=== PATIENT | female | born 1950 | race Caucasian/White ===

== ENCOUNTER 2019-08-15 17:04 | Emergency (ER) | payer MEDICARE, SELFPAY ==
[2019-08-15 17:42] VITALS: BP 103/61; PULSE 86; RESP 18; TEMP 36.7; O2SAT 95
--- NOTE | 2019-08-15 18:07 | ED.URI ---
HPI - URI/Sore Throat General Chief Complaint: Upper Respiratory Infection Stated Complaint: Chest Congestion/cough Time Seen by Provider: 08/15/19 17:50 Source: patient Mode of arrival: ambulatory Limitations: no limitations History of Present Illness HPI Narrative: Mare alexis is a 69-year-old female who comes to express care with cough and shortness of breath. She is known to have COPD, seen apparent primary recently and gotten a Medrol Dosepak from the primary. A chest x-ray today and [facility] which was read as no acute pulmonary process Related Data Home Medications Medication Instructions Recorded Confirmed albuterol sulfate 90 mcg/actuation 1 puff INHALATION Q4H PRN 04/25/19 05/20/19 aerosol inhaler cholecalciferol (vitamin D3) 50 2,000 unit PO DAILY 04/25/19 05/20/19 mcg (2,000 unit) tablet desoximetasone 0.05 % topical cream 1 applic TOPICAL BID 04/25/19 05/20/19 fluticasone propionate 50 2 spray NASAL DAILY 04/25/19 05/20/19 mcg/actuation nasal spray,suspension hydrocodone 10 mg-acetaminophen 1 tablet PO TID PRN tablet 04/25/19 05/20/19 325 mg tablet ibuprofen 800 mg tablet 800 mg PO TID 04/25/19 05/20/19 loratadine 10 mg tablet 10 mg PO DAILY 04/25/19 05/20/19 mupirocin 2 % topical ointment 1 applic TOPICAL BID 04/25/19 05/20/19 pantoprazole 40 mg tablet,delayed 40 mg PO QAM 04/25/19 05/20/19 release sennosides 8.6 mg tablet 8.6 mg PO BID 04/25/19 05/20/19 simvastatin 20 mg tablet 20 mg PO DAILY 04/25/19 05/20/19 sitagliptin 50 mg tablet 50 mg PO DAILY 04/25/19 05/20/19 ibuprofen 08/15/19 Allergies Allergy/AdvReac Type Severity Reaction Status Date / Time latex Allergy Intermediate CONTACT Verified 08/15/19 17:47 ONLY, RASH ceftriaxone Allergy Unknown Rash Verified 08/15/19 17:47 levofloxacin Allergy Unknown Rash Verified 08/15/19 17:47 morphine Allergy Unknown Rash Verified 08/15/19 17:47 Bgbzlsn-Bph-Equ Reductase Allergy Unknown Back Pain Verified 08/15/19 17:47 Inhibitor prednisone AdvReac Irritable Verified 08/15/19 18:50 Review of Systems Review of Systems: Narrative: CONSTITUTIONAL: Denies fever, chills, sweats. EYES: Denies visual changes, redness, discharge. ENT: Denies rhinorrhea, congestion, sore throat, otalgia. CARDIOVASCULAR: Denies chest pain, palpitations, edema. RESPIRATORY: Denies dyspnea, moderate wheezing, dry cough GASTROINTESTINAL: Denies abdominal pain, nausea, vomiting, diarrhea. GENITOURINARY: Denies dysuria, hematuria, abnormal discharge SKIN: Denies rash or itching. NEUROLOGIC: Denies numbness, or focal weakness. PSYCHIATRIC: Denies anxiety or depression. [facility] Family History Family History Sibling Family history of bipolar disorder Family history of chronic obstructive pulmonary disease Father Hypertension Family history of chronic obstructive pulmonary disease Malignant neoplasm of prostate Patient's father is Mother Hypertension Family history of transient ischemic attacks Family history of elevated blood lipids Family history of diabetes mellitus in first degree relative Family history of coronary artery disease Patient's mother is Family history of malignant neoplasm of breast in first degree relative Diabetes mellitus Other Asthma Cerebrovascular accident Family history of arthritis Social History Social History Smoking status: Never smoker Alcohol intake: current Comments At time of signature, I agree with nursing past medical, surgical, social and family history. There is no relevant family history pertinent to the presenting complaint. Exam Narrative: Exam Narrative: GENERAL: This is a well-nourished, well-developed patient, in mild distress. HEAD: normocephalic, atraumatic. EYES: Sclera clear/white. Vision is grossly intact. EARS: External ears normal, . Hea
--- NOTE | 2019-08-15 18:57 | ED.URI ---
HPI - URI/Sore Throat General Chief Complaint: Upper Respiratory Infection Stated Complaint: Chest Congestion/cough Time Seen by Provider: 08/15/19 17:50 Source: patient Mode of arrival: ambulatory Limitations: no limitations Related Data Home Medications Medication Instructions Recorded Confirmed albuterol sulfate 90 mcg/actuation 1 puff INHALATION Q4H PRN 04/25/19 05/20/19 aerosol inhaler cholecalciferol (vitamin D3) 50 2,000 unit PO DAILY 04/25/19 05/20/19 mcg (2,000 unit) tablet desoximetasone 0.05 % topical cream 1 applic TOPICAL BID 04/25/19 05/20/19 fluticasone propionate 50 2 spray NASAL DAILY 04/25/19 05/20/19 mcg/actuation nasal spray,suspension hydrocodone 10 mg-acetaminophen 1 tablet PO TID PRN tablet 04/25/19 05/20/19 325 mg tablet ibuprofen 800 mg tablet 800 mg PO TID 04/25/19 05/20/19 loratadine 10 mg tablet 10 mg PO DAILY 04/25/19 05/20/19 mupirocin 2 % topical ointment 1 applic TOPICAL BID 04/25/19 05/20/19 pantoprazole 40 mg tablet,delayed 40 mg PO QAM 04/25/19 05/20/19 release sennosides 8.6 mg tablet 8.6 mg PO BID 04/25/19 05/20/19 simvastatin 20 mg tablet 20 mg PO DAILY 04/25/19 05/20/19 sitagliptin 50 mg tablet 50 mg PO DAILY 04/25/19 05/20/19 ibuprofen 08/15/19 Allergies Allergy/AdvReac Type Severity Reaction Status Date / Time latex Allergy Intermediate CONTACT Verified 08/15/19 17:47 ONLY, RASH ceftriaxone Allergy Unknown Rash Verified 08/15/19 17:47 levofloxacin Allergy Unknown Rash Verified 08/15/19 17:47 morphine Allergy Unknown Rash Verified 08/15/19 17:47 Jiwjfzj-Ymz-Ibh Reductase Allergy Unknown Back Pain Verified 08/15/19 17:47 Inhibitor prednisone AdvReac Irritable Verified 08/15/19 18:50 PMFSH Family History Family History Sibling Family history of bipolar disorder Family history of chronic obstructive pulmonary disease Father Hypertension Family history of chronic obstructive pulmonary disease Malignant neoplasm of prostate Patient's father is Mother Hypertension Family history of transient ischemic attacks Family history of elevated blood lipids Family history of diabetes mellitus in first degree relative Family history of coronary artery disease Patient's mother is Family history of malignant neoplasm of breast in first degree relative Diabetes mellitus Other Asthma Cerebrovascular accident Family history of arthritis Social History Social History Smoking status: Never smoker Alcohol intake: current Course Vital Signs Vital signs: Vital Signs Temperature 98.0 F 08/15/19 17:42 Pulse Rate 86 08/15/19 17:42 Respiratory Rate 18 08/15/19 17:42 Blood Pressure 103/61 08/15/19 17:42 Pulse Oximetry 95 08/15/19 17:42 Temperature 98.0 F 08/15/19 17:42 Pulse Rate 86 08/15/19 17:42 Respiratory Rate 18 08/15/19 17:42 Blood Pressure 103/61 08/15/19 17:42 Pulse Oximetry 95 08/15/19 17:42 Discharge Plan Discharge Clinical Impression: Upper respiratory infection Qualifiers: URI type: unspecified viral URI Qualified Code(s): J06.9 - Acute upper respiratory infection, unspecified Patient Disposition: Home, Self-Care Condition: Stable Instructions: COPD (Chronic Obstructive Pulmonary Disease) (DC) Prescriptions: New Coricidin HBP Chest Rony-Cough 10-200 mg capsule 1 tab-cap PO ONCE PRN (Reason: cough) Qty: 30 RF: 0 codeine-guaifenesin 10-100 mg/5 mL liquid 10 ml PO Q4-6H PRN (Reason: cough) Qty: 180 RF: 0 No Action ibuprofen 800 mg tablet RF: 0 desoximetasone 0.05 % cream 1 applic TOPICAL BID RF: 0 fluticasone propionate 50 mcg/actuation spray,suspension 2 spray NASAL DAILY RF: 0 hydrocodone-acetaminophen 10-325 mg tablet 1 tablet PO TID PRNRF: 0 ibuprofen 800 mg tablet 800 mg PO TID RF: 0 Januvia 5
== END 2019-08-15 18:59 | disposition home or self-care (01) ==
PROVIDERS: Emergency Provider Nurse Practitioner
DX: J06.9 Acute upper respiratory infection, unspecified (principal); E78.00 Pure hypercholesterolemia, unspecified; I10 Essential (primary) hypertension; J44.9 Chronic obstructive pulmonary disease, unspecified; E11.9 Type 2 diabetes mellitus without complications
CPT/HCPCS: 99213; G0463

== ENCOUNTER 2020-12-04 08:31 | Outpatient (CLI) | payer MEDICARE, SELFPAY ==
--- NOTE | ~2020-12-04 | CT_ITS ---
EXAMINATION: CT lung screening DATE: 12/04/2020 09:09 INDICATION: Personal history of nicotine dependence TECHNIQUE: Computed tomography (CT) of the chest was performed without intravenous contrast. The dose -length product was 136.55 mGy-cm. Automated exposure control and iterative reconstruction technique were employed. COMPARISON: CT dated 08/04/2015 FINDINGS: Heart size is normal. No significant pleural or pericardial effusion. No thoracic lymphaden opathy. There is coronary and aortic atherosclerotic change. Left adrenal mass is low density measuri ng 2.5 cm, likely benign adenoma. No endobronchial lesions. There are a few small 2 mm nodules scatte red throughout both lungs. No pneumothorax. Mild thoracic spondylosis. IMPRESSION: 1. Lung-RADS category 2: Benign appearance or behavior. Continue annual screening with noncontrast lo w-dose chest CT in 12 months. Reviewed, dictated and finalized at location A. IMPRESSION: 1. Lung-RADS category 2: Benign appearance or behavior. Continue annual screeni ng with noncontrast low-dose chest CT in 12 months.
[2020-12-04 09:06] LABS: Basophils Percent Auto 0.6 % (0.2-1.2); Eosinophils Absolute Auto 0.2 K/mm3 (0-0.3); Eosinophils Percent Auto 4.3 % (0-4.4); Hematocrit 42.8 % (37.0-47.0); Hemoglobin 14.4 g/dL (12.0-15.0); Immature Granulocyte Absolute 0.01 K/mm3 (0.00-0.031); Immature Granulocyte Percent A 0.2 % (0-0.5); Lymphocytes Absolute Auto 1.27 K/mm3 (0.9-3.2); Mean Corpuscular HGB Conc 33.6 g/dl (32-36); Mean Corpuscular Hemoglobin 31.6 pg (26-34); Mean Corpuscular Volume 94.1 fl (80-100); Mean Platelet Volume 8.8 fl (7.4-10.4); Monocytes Absolute Auto 0.5 K/mm3 (0.1-0.6); Monocytes Percent Auto 9.1 % (2.6-8.5); Neutrophils Absolute Auto 3.1 K/mm3 (1.3-6.7); Neutrophils Percent Auto 60.8 % (45.5-73.1); Platelet Count Result 306 k/mm3 (150-375); Red Blood Count 4.55 M/mm3 (4.2-5.4); Red Cell Distribution Width 12.9 % (11.5-14.5); White Blood Count 5.1 K/mm3 (4.5-10.0)
[2020-12-04 09:10] LABS: Alanine Aminotransferase 20 U/L (4-35); Alkaline Phosphatase 63 U/L (38-126); Anion Gap 6 mmol/L (8-16); Aspartate Amino Transferase 30 U/L (14-36); Bilirubin,Total 0.3 mg/dL (0.2-1.3); Blood Urea Nitrogen 19 mg/dL (7-17); Calcium 9.1 mg/dL (8.4-10.2); Carbon Dioxide 24 mmol/L (22-30); Chloride 111 mmol/L (98-107); Cholesterol 213 mg/dL (0-200); Estimated Glomerular Filt Rate > 60; Glucose 102 mg/dL (65-105); HDL Direct 46 mg/dL; Potassium 4.1 mmol/L (3.4-5.0); Sodium 141 mmol/L (137-145); Triglycerides 202 mg/dL (<150)
[2020-12-04 09:21] LABS: LDL Cholesterol Direct 114 mg/dL
[2020-12-04 09:25] LABS: Hemoglobin A1C 6.1 % (<5.7)
[2020-12-04 10:06] LABS: Creatinine Urine 56.8 mg/dL
[2020-12-04 10:09] LABS: MALB Creatinine Ratio 48.9 mg/g (0-30); Microalbumin Urine Random 27.8 mg/L (0-16.7)
== END 2020-12-04 08:32 | disposition home or self-care (01) ==
PROVIDERS: PCP Internal Medicine; Visit Provider Internal Medicine
DX: R53.83 Other fatigue (principal); Z87.891 Personal history of nicotine dependence; E11.9 Type 2 diabetes mellitus without complications; I10 Essential (primary) hypertension; E78.5 Hyperlipidemia, unspecified
CPT/HCPCS: 36415; 71271; 80053; 80061; 82043; 83036; 84443; 85025

== ENCOUNTER 2021-05-25 07:35 | Outpatient (CLI) | payer MEDICARE, SELFPAY ==
--- NOTE | 2021-06-15 08:13 | WPDSLEEPSTUD ---
Sleep Study Date of Study: 05/25/21 <Ankita Bhakta DO - Last Filed: 06/15/21 17:21> Ordering Provider: Sabino Ledesma DO <Ankita Bhakta, DO - Last Filed: 06/15/21 17:21> Interpreting Physician: Ankita Bhakta DO <Ankita Bhakta, DO - Last Filed: 06/15/21 17:21> Sleep Study Type: Split Polysomnogram <Ankita Bhakta DO - Last Filed: 06/15/21 17:21> Height: 1.7 m <Ankita Bhakta DO - Last Filed: 06/15/21 17:21> Weight: 97.522 kg <Ankita Bhakta DO - Last Filed: 06/15/21 17:21> Body Mass Index: 33.6 <Ankita Bhakta DO - Last Filed: 06/15/21 17:21> Neck Circumference (inches): 17.5 <Ankita Bhakta DO - Last Filed: 06/15/21 17:21> [place]: 5 <Ankita Bhakta DO - Last Filed: 06/15/21 17:21> Reason for Sleep Study Unrefreshing sleep, daytime hypersomnia <Ankita Bhakta DO - Last Filed: 06/15/21 17:21> Sleep History The patient is a 70-year-old female with hypertension, diabetes, COPD, cervical spinal stenosis, depression, ADD and GERD that had a sleep study ordered by her primary care due to unrefreshing sleep and daytime hypersomnia. the patient denies awaking from sleep short of breath. She rarely awakens at night with heartburn, belching or cough. She frequently snores. She frequently has trouble sleeping when she has a cold [place] she rarely wakes up gasping for air throughout the night GERD she rarely has breathing problems at night observed by others. She occasionally notices heart palpitations or irregular heartbeats during the night. She frequently falls asleep during the day but never while driving. She denies sleep paralysis, cataplexy and hypnagogic / hypnopompic hallucinations. She denies having nightmares. She frequently has thoughts racing through her mind. She occasionally feels sad or depressed. She occasionally has anxiety. She occasionally notices parts of her body jerk. She rarely kicks during the night. She rarely has crawling and aching feelings in her legs. She occasionally has leg pain during the night. She occasionally grinds her teeth during sleep but never awakens with morning jaw pain. She is frequently bothered by pain during the day and frequently awakened by pain during the night. She occasionally wakes up feeling stiff in the morning with sore and achy muscles. She constantly wakes up with pain in the neck, spine and other joints. The patient goes to bed at 8:00 p.m. on weekdays and 9:00 p.m. on the weekends. She can fall asleep quickly. She wakes up 3 times per night to use the restroom. She can fall asleep within 5 minutes. She wakes up at 6:00 a.m. on weekdays and 7:00 a.m. on the weekends. She typically gets 8 hours of sleep per night. She will stay in bed for 5 minutes after waking up in the morning. She currently lives alone. She does not consume any caffeinated beverages within 2 hours of bedtime. She does not engage in physical exercise before bedtime. She will watch television before falling asleep. She will take naps in the afternoon or the evening but they are not refreshing. She currently drinks 6 caffeinated beverages per day is. She drinks 2 alcoholic beverages per month. She currently smokes 1 pack of cigarettes per day. She denies recreational drug use. <Ankita Bhakta DO - Last Filed: 06/15/21 17:21> [facility] Past Medical History Medical History: Medical History (Updated 06/15/21 @ 17:17 by Ankita Bhakta DO) ADD (attention deficit disorder) Chronic obstructive pulmonary disease, unspecified Controlled type 2 diabetes mellitus without complication Essential (primary) hypertension Gastroesophageal reflux disease without esophagitis Major depressive disorder, single episode, unspecified Mixed hyperlipidemia <Ankita Bhakta DO - Last Filed: 06/15/21 17:21> Family History Family History: Family History (Reviewed
[2021-06-15 17:13] VITALS: BMI 33.6
== END 2021-05-26 06:30 | disposition home or self-care (01) ==
LOC: ANHCSM 07:36
PROVIDERS: PCP Internal Medicine; Visit Provider Internal Medicine
DX: G47.33 Obstructive sleep apnea (adult) (pediatric) (principal); G47.61 Periodic limb movement disorder
CPT/HCPCS: 95811

== ENCOUNTER 2022-07-06 12:21 | Outpatient (CLI) | payer MEDICARE, SELFPAY ==
[2022-07-06 13:54] LABS: Basophils Percent Auto 0.5 % (0.2-1.2); Eosinophils Absolute Auto 0.4 K/mm3 (0-0.3); Eosinophils Percent Auto 4.5 % (0-4.4); Hematocrit 46.6 % (37.0-47.0); Hemoglobin 15.7 g/dL (12.0-15.0); Immature Granulocyte Absolute 0.04 K/mm3 (0.00-0.031); Immature Granulocyte Percent A 0.5 % (0-0.5); Lymphocytes Absolute Auto 1.63 K/mm3 (0.9-3.2); Lymphocytes Percent Auto 20.9 % (18.3-44.2); Mean Corpuscular HGB Conc 33.7 g/dl (32-36); Mean Corpuscular Hemoglobin 33.1 pg (26-34); Mean Corpuscular Volume 98.3 fl (80-100); Mean Platelet Volume 8.6 fl (7.4-10.4); Monocytes Absolute Auto 0.6 K/mm3 (0.1-0.6); Monocytes Percent Auto 7.2 % (2.6-8.5); Neutrophils Absolute Auto 5.2 K/mm3 (1.3-6.7); Neutrophils Percent Auto 66.4 % (45.5-73.1); Platelet Count Result 344 k/mm3 (150-375); Red Blood Count 4.74 M/mm3 (4.2-5.4); Red Cell Distribution Width 13.6 % (11.5-14.5); White Blood Count 7.8 K/mm3 (4.5-10.0)
[2022-07-06 14:02] LABS: Hemoglobin A1C 5.6 % (<5.7)
[2022-07-06 14:16] LABS: Alanine Aminotransferase 22 U/L (6-35); Albumin Level 4.2 g/dL (3.5-5.1); Alkaline Phosphatase 93 U/L (38-126); Anion Gap 8 mmol/L (8-16); Aspartate Amino Transferase 29 U/L (14-36); Bilirubin,Total 0.4 mg/dL (0.2-1.3); Blood Urea Nitrogen 19 mg/dL (7-17); Calcium 9.3 mg/dL (8.4-10.2); Carbon Dioxide 23 mmol/L (22-30); Chloride 107 mmol/L (98-107); Cholesterol 196 mg/dL (0-200); Estimated Glomerular Filt Rate > 60; Glucose 106 mg/dL (65-110); HDL Direct 49 mg/dL; Potassium 4.2 mmol/L (3.4-5.0); Sodium 138 mmol/L (137-145); Triglycerides 154 mg/dL (<150)
[2022-07-06 14:21] LABS: CRP < 0.5 mg/dL (<1.0); Creatine Kinase 86 U/L (30-135); Uric Acid 6.1 mg/dL (2.5-7.5)
[2022-07-06 14:22] LABS: Complement C3 120 mg/dL (88-165)
[2022-07-06 14:26] LABS: Creatinine Urine 44.9 mg/dL
[2022-07-06 14:27] LABS: LDL Cholesterol Direct 108 mg/dL
[2022-07-06 14:30] LABS: MALB Creatinine Ratio 77.7 mg/g (0-30); Microalbumin Urine Random 34.9 mg/L (0-16.7)
[2022-07-06 14:34] LABS: Vitamin D 25 Hydroxy 43.1 ng/mL
[2022-07-06 14:41] LABS: Erythrocyte Sedimentation Rate 18 mm/hr (0-20)
[2022-07-06 14:47] LABS: Hepatitis B Surface Antigen Negative (Negative)
[2022-07-06 15:05] LABS: Hepatitis B Surface Anti Res Negative; Hepatitis C Virus Antibody Negative (Negative)
[2022-07-06 15:11] LABS: Rheumatoid Factor > 120.0 IU/ML (<12)
[2022-07-06 15:21] LABS: Folic Acid 15.4 ng/mL (2.76->20)
[2022-07-08 16:17] LABS: NIL 0.01 IU/mL; Quantiferon TB Plus, 1T NEGATIVE (NEGATIVE); TB1-NIL 0.01 IU/mL; TB2-NIL 0.02 IU/mL
[2022-07-10 08:20] LABS: SM Antibody <1.0; SM/RNP Antibody <1.0; SS-A 5.7; SS-B <1.0
[2022-07-11 20:48] LABS: Anti Cyclic Citrullinated Pept >250 Units (<20)
[2022-07-11 20:56] LABS: Lupus dRVVT Screen 39 sec (<=45); PTT-LA Screen 32 sec (<=40)
[2022-07-11 21:31] LABS: Aldolase 4.1 U/L (<=8.1)
== END 2022-07-06 12:22 | disposition home or self-care (01) ==
LOC: ANHLAB 12:23
PROVIDERS: Nurse Practitioner Family; PCP Internal Medicine; Visit Provider Internal Medicine
DX: M32.9 Systemic lupus erythematosus, unspecified (principal); E11.9 Type 2 diabetes mellitus without complications; I10 Essential (primary) hypertension; E78.5 Hyperlipidemia, unspecified; E56.9 Vitamin deficiency, unspecified; G47.10 Hypersomnia, unspecified; R53.83 Other fatigue; M19.90 Unspecified osteoarthritis, unspecified site; Z11.59 Encounter for screening for other viral diseases
CPT/HCPCS: 36415; 80053; 80061; 82043; 82085; 82306; 82550; 82607; 82746; 83036; 84550; 85025; 85613; 85652; 85730; 86038; 86140; 86160; 86200; 86225; 86235; 86430; 86480; 86706; 86803; 87340

== ENCOUNTER 2023-07-21 14:27 | Emergency (ER) | payer MEDICARE, SELFPAY ==
--- NOTE | ~2023-07-21 | XR_ITS ---
Clinical Indication: Cough PA and lateral views of the chest: Comparison: 05/09/2018 Findings: The lungs are clear, without evidence of focal consolidation or pleural effusion. Cardiome diastinal silhouette is within normal limits, with loop recorder. Bones and soft tissues are unremark able. Impression: Clear lungs. Reviewed, dictated and finalized at location . 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
[2023-07-21 14:35] VITALS: BP 129/63; PULSE 90; RESP 20; TEMP 37.1; O2SAT 98
--- NOTE | 2023-07-21 14:41 | ED.URI ---
HPI - URI/Sore Throat General Chief Complaint: Upper Respiratory Infection Stated Complaint: cough/sob Time Seen by Provider: 07/21/23 14:41 Source: patient, RN notes reviewed and old records reviewed Mode of arrival: ambulatory Limitations: no limitations History of Present Illness HPI Narrative: 72-year-old female presents to the [facility] with complaints of cough, shortness of breath and wheezing. Patient has a history of COPD Patient states 3 weeks ago she started with hoarse voice and laryngitis. One week of cough, shortness of breath and wheezing. Has been using her prescribed medications Patient reports low-grade fevers Denies any chest pain. Denies any swelling Onset (ago): week(s) (1-3) Treatments prior to arrival: other (Inhalers) Related Data Home Medications Medication Instructions Recorded Confirmed cholecalciferol (vitamin D3) 50 2,000 unit PO DAILY 04/25/19 07/21/23 mcg (2,000 unit) tablet hydrocodone 10 mg-acetaminophen 1 tablet PO TID PRN pain 04/25/19 07/21/23 325 mg tablet loratadine 10 mg tablet 10 mg PO DAILY 04/25/19 07/21/23 sennosides 8.6 mg tablet (Senokot) 8.6 mg PO BID 04/25/19 07/21/23 coenzyme Q10 100 mg capsule 100 mg PO DAILY 04/14/20 07/21/23 (CoQ-10) calcium carbonate 260 mg calcium 260 mg PO DAILY 12/22/20 07/21/23 (648 mg) tablet Allergies Allergy/AdvReac Type Severity Reaction Status Date / Time latex Allergy Intermediate CONTACT Verified 07/21/23 14:35 ONLY, RASH ceftriaxone Allergy Unknown Rash Verified 07/21/23 14:35 levofloxacin Allergy Unknown Rash Verified 07/21/23 14:35 morphine Allergy Unknown Rash Verified 07/21/23 14:35 aripiprazole [From Abilify] AdvReac Intermediate Tardive Verified 07/21/23 14:35 dyskinesia Review of Systems Review of Systems: All systems reviewed & are unremarkable except as noted in HPI and below Constitutional: Constitutional: Reports as per HPI and Reports body ache(s) Eyes: Eyes: Reports no additional eye complaints ENT: Reports system reviewed and no additional complaints, except as documented Cardiovascular: Cardiovascular: Reports no additional cardiovascular complaints, Denies chest pain and Denies dyspnea Respiratory: Respiratory: Reports as per HPI, Denies chest congestion, Reports cough, Reports dyspnea and Reports wheezing Gastrointestinal: Gastrointestinal: Reports no additional gastrointestinal complaints, Denies abdominal pain, Denies nausea and Denies vomiting Musculoskeletal: Musculoskeletal: Reports no additional musculoskeletal complaints Integumentary/Breasts: Skin/Breast: Reports system reviewed and no additional complaints, except as docu Neurologic: Reports system reviewed and no additional complaints, except as documented Psychiatric: Psychiatric: Reports no additional psychiatric complaints Allergic/Immunologic: Allergic/Immunologic: Reports no additional allergic/immunologic complaints [facility] Past Medical History Medical History ADD (attention deficit disorder) Bilateral hand pain Chronic obstructive pulmonary disease, unspecified Controlled type 2 diabetes mellitus without complication CPAP (continuous positive airway pressure) dependence Essential (primary) hypertension Gastroesophageal reflux disease without esophagitis Lupus (systemic lupus erythematosus) Major depressive disorder, single episode, unspecified Mixed hyperlipidemia Ocular migraine Family History Family History Sibling Family history of bipolar disorder Family history of chronic obstructive pulmonary disease Father Hypertension Family history of chronic obstructive pulmonary disease Malignant neoplasm of prostate Patient's father is Mother Hypertension Family history of transient ischemic attacks Family history of elevated blood lipids Family history of diabetes mellitus in first degree rel
[2023-07-21 14:47] VITALS: BP 129/63; PULSE 90; RESP 20; TEMP 37.1; O2SAT 98
[2023-07-21] MEDS: ALBUTEROL SULFATE NEB 2.5 MG/3 ML INH INHALATION (15:03)
[2023-07-21] MEDS: IPRATROPIUM BR 0.02% INH SOLN 0.5 MG/2.5 ML VIAL INHALATION (15:03)
[2023-07-21 15:35] VITALS: PULSE 84; RESP 20; O2SAT 97
== END 2023-07-21 15:45 | disposition home or self-care (01) ==
PROVIDERS: Emergency Provider Nurse Practitioner; PCP Family Medicine
DX: J44.1 Chronic obstructive pulmonary disease with (acute) exacerbation (principal); F17.210 Nicotine dependence, cigarettes, uncomplicated; E11.9 Type 2 diabetes mellitus without complications; I10 Essential (primary) hypertension; K21.9 Gastro-esophageal reflux disease without esophagitis; M32.9 Systemic lupus erythematosus, unspecified; E78.2 Mixed hyperlipidemia; F90.9 Attention-deficit hyperactivity disorder, unspecified type; F32.9 Major depressive disorder, single episode, unspecified
CPT/HCPCS: 71046; 94640; 99213; G0463

== ENCOUNTER 2024-10-08 12:04 | Outpatient (CLI) | payer MEDICARE, SELFPAY ==
--- OUTSIDE RECORDS SUMMARY | 2024-10-08 13:18 | XMS_ITS | Clinical Summary ---
Author Organization [facility] Address [address] [place] [address] Phone Care Team Providers Care Ludlow Machine Operator Name Role Phone Deandre Ellis MD Primary Care Provider [phone] Allergies No known active allergies Medications HYDROcodone-acet aminophen (NORCO) 5-325 mg Oral tablet Take 1 Tab by mouth every 4 hours as needed for Pain, Moderate. 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 Gender Identity Not on file Sexual Orientation Not on file Last Filed Vital Signs Vital Sign Reading Time Taken Comments Blood Pressure 132/70 04/04/2012 11:58 PM CDT Pulse 84 04/04/2012 11:58 PM CDT Temperature 36.2 C (97.2 F) 04/04/2012 8:59 PM CDT Respiratory Rate 18 04/04/2012 11:58 PM CDT Oxygen Saturation 96% 04/04/2012 11:58 PM CDT Inhaled Oxygen Concentration - - Weight - - Height - - Body Mass Index - - Plan of Treatment Health Maintenance Due Date Last Done Comments DTAP/TDAP/TD VACCINES (1 - Tdap) 08/14/1971 BREAST CANCER SCREENING 1992 COLORECTAL SCREENING 1997 Colorectal Cancer Screening 1997 FIT-DNA Q 3 years 1997 FIT/FOBT Q 1 year 1997 Flex Sig/CT Colonography Q 5 years 1997 PNEUMOCOCCAL VACCINE 50+ YEARS (1 of 1 - PCV) 08/14/19 03 ZOSTER VACCINE (1 of 2) 2002 OSTEOPOROSIS SCREENING 2017 INFLUENZA VACCINE (#1) 2024 RSV VACCINE (60+ or ) (1 - 1-dose 75+ series) 08/14/2027 Insurance [facility] [id number] Care Teams Ludlow Machine Operator Relationship Specialty Start Date End Date Deandre Ellis MD [address] [place] [address] PCP - General Internal Medicine 04/04/12
--- OUTSIDE RECORDS SUMMARY | 2024-10-08 13:18 | XMS_ITS ---
Author Organization [facility] Address [address] [place] [address] Phone Care Team Providers Care Esthetician Facialist Name Role Phone Celio Del Valle MD Primary Care Provider [phone] Shabbir Carlos MD Unavailable [phone] [facility] Status:Enrolled (Active) Start date:07/09/2024 Enrollment date:07/09/2024 Related social drivers of health:Intimate Partner Violence, Social Connections, Alcohol Use, Tobacco Use, Financial Resource Strain,Depression, Stress, Physical Activity, Food Insecurity, Transportation Needs, Housing Stability, Utilities Continued Care and Services Coordination
--- OUTSIDE RECORDS SUMMARY | 2024-10-08 13:18 | XMS_ITS | Encounter Summary ---
Author Organization [facility] Address [address] [place] [address] Care Team Providers Care Rubber Trimmer Name Role Phone Celio Del Valle MD Primary Care Provider [phone] Reason for Visit * Cardiology (Routine) - Closed Specialty Diagnoses / Procedures Referred By Rafy t Referred To Contact Diagnoses Syncope, unspecified syncope type Implantable loop recorder present Chest pain, unspecified type Procedures DEVICE CHECK - REMOTE Elieser Christensen MD [address] [place] [address] [place] [address] Phone: tel: fax: [facility] Referral ID Status Reason Start Date Expiration Date Visits Re quested Visits Authorized [id number] Closed 09/02/2024 03/05/2026 1 1 Encounter Details Date Type Department Care Team (Latest Contact Info) Description 10/08/2024 7:00 AM CDT Ancillary Procedure [employer] [place] [employer] Claims [employer] [address] [place] [id number] Syncope, unspecified syncope type; Implantable loop recorder present; Chest pain, unspecified type Social History Tobacco Use Types Packs/Day Years Used Date Smoking Tobacco: Every Day Cigarettes 1 30 Smokeless Tobacco: Never AUDIT-C Answer Date Recorded Q1: How often do you have a drink containing alc ohol? Monthly or less 06/09/2024 Q2: How many drinks containi ng alcohol do you have on a typical day when you are drinking? 1 or 2 06/09/2024 Q3: How often do you have si x or more drinks on one occasion? Less than monthly 06/09/2024 Personal Safety Answer Date Recorded Have you ever been in or are you currently in a harmful physical or emotional relationship or is someone making you feel afraid or unsafe? 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 Gender Identity Not on file Sexual Orientation Not on file documented as of this encounter Plan of Treatment Pending Results Name Type Priority Associated Diagnoses Date /Time DEVICE CHECK - REMOTE Cardiac Services Routine Syncope, unspecified syncope type Implantable loop recorder present Chest pain, unspecified type 10/07/2024 11:33 AM CDT documented as of this encounter Visit Diagnoses Diagnosis Syncope, unspecified syncope type Implantable loop recorder present Chest pain, unspecified type documented in this encounter Care Teams Rubber Trimmer Relationship Specialty Start Date End Date Celio Del Valle MD PCP - General Family Practice 09/26/23 documented as of this encounter
--- OUTSIDE RECORDS SUMMARY | 2024-10-08 13:18 | XMS_ITS | Clinical Summary ---
Author Organization [facility] [address] Address [address] [place] [address] Care Team Providers Care Professor Of Violin Name Role Phone Celio Del Valle MD Primary Care Provider [phone] Allergies Active Allergy Reactions Criticality Noted Date Comments Adhesive Rash,Redness Medium 06/27/2021 Latex Swelling Medium 11/01/2018 Levofloxacin Rash Medium 11/01/2018 Morphine Anxiety,Rash Medium 05/18/2021 Ceftriaxone Swelling,Rash Medium 06/26/2019 Medications HYDROcodone-asad taminophen (NORCO) 10-325 mg per tablet Take 1 tablet by mouth 3 (three) times a day as needed 0 9 Active montelukast (SINGULAIR) 10 mg tablet Take 1 tablet (10 mg total) by mouth nightly Active simvastatin (ZOCOR) 20 mg tablet Take 1 tablet (20 mg total) by mouth nightly Active DULoxetine DR (CYMBALTA) 60 mg capsuleIndicati ons:Anxiety with Depression Take 1 capsule (60 mg total) by mouth daily Active famotidine (PEPCID) 40 mg tablet Take 1 tablet (40 mg total) by mouth nightly as needed 1 Active FLUoxetine (PROzac) 40 mg capsule Take 1 capsule (40 mg total) by mouth daily 1 Active hydrOXYchloroQU INE (PLAQUENIL) 200 mg tablet Take 1 tablet (200 mg total) by mouth 2 (two) times a day 1 Active ibuprofen (ADVIL,MOTRIN) 800 mg tablet Take 730 mg by mouth 2 (two) times a day 1 Active Januvia 50 mg tablet Take 1 tablet (50 mg total) by mouth daily 1 Active valsartan (DIOVAN) 160 mg tablet Take 1 tablet (160 mg total) by mouth daily 1 Active coenzyme Q10 10 mg capsule Take 1 capsule (10 mg total) by mouth daily Active calcium carbonate-vitam in D3 1,250 mg (500 mg elemental)-400 unit chewable tablet Take 1 tablet by mouth daily Active gabapentin (NEURONTIN) 300 mg capsule Take 1 capsule (300 mg total) by mouth once Active carvediloL (COREG) 6.25 mg tablet TAKE 1 TABLET (6.25 MG TOTAL) BY MOUTH 2 (TWO) TIMES A DAY WITH MEALS 180 tablet 3 4 03/10/20 25 Active Mounjaro 10 mg/0.5 mL pen injector Inject 10 mg as directed once a week 4 Active albuterol HFA (PROVENTIL HFA,VENTOLIN HFA,PROAIR HFA) 90 mcg/actuation inhaler Inhale 2 puffs 3 (three) times a day as needed Active Trelegy Ellipta 200-62.5-25 mcg inhaler Inhale 1 puff daily 4 Active topiramate (TOPAMAX) 25 mg tablet Take 1 tablet (25 mg total) by mouth 2 (two) times a day [address] (PROTONIX) 40 mg EC tablet Take 1 tablet (40 mg total) by mouth daily 4 Active nystatin cream Apply topically as needed 4 Active methylphenidate HCl (RITALIN) 20 mg tablet Take 1 tablet (20 mg total) by mouth 2 (two) times a day Active denosumab (PROLIA) 60 mg/mL syringe Inject under the skin once Active Active Problems Problem Noted Date Diagnosed Date Encounter for screening colonoscopy 09/26/2023 Chest pain 12/28/2022 Implantable loop recorder present 12/27/2022 Gastroesophageal reflux disease 01/09/2022 Overview (01/09/2022): Added automatically from request for surgery [id number] Encounter for loop recorder check 12/26/2021 Primary hypertension 05/09/2021 Mixed hyperlipidemia 05/09/2021 Syncope Overview (06/13/2021): Status post Biotronik Biomonitor 3 loop recorder insertion on 19 May 2021. Assessment & Plan (06/14/2021 11:14 AM G[employer] LEAF RO[employer]ER): Not seen for wound check since loop recorder insertion about a month ago. Apparently some stitches are coming out and these were removed. Dehydration Elevated lactic acid level Metabolic acidosis Volume depletion Encounters Date Type Department Care Team Description 10/08/2024 7:00 AM CDT Ancillary Procedure [place] [employer] [address] [place] [phone] Syncope, unspecified syncope type; Implantable loop recorder present; Chest pain, unspecified type 09/03/2024 1:25 PM CDT Lab [address] [phone] 09/03/2024 7:15 AM CDT Ancillary Procedure [place] [employer] [address] [place] [phone] Syncope, unspecified syncope type; Implantable loop recorder present 09/02/2024 Orders Only [place] [employer] [address] [place] [phone] Malec, Nadeen Syncope, unspecified syncope type (Primary Dx); Implantable loop recorder present; Chest pain, unspecified type 08/18/2024 Telephone [place] [employer] [address] [place] [phone] Malec, Nadeen 08/01/2024 10:20 AM [employer] [address] [phone] 07/30/2024 3:00 PM [employer] Ancillary Procedure [place] [employer] [address] [place] [phone] Syncope, unspecified syncope type; Implantable loop recorder present from Last 3 Months Surgical History Surgery Date Site/Laterality Comments HYSTERECTOMY 06/11/1980 PATELLA FRACTURE SURGERY 06/11/1999 - 06/10/2000 Left COLONOSCOPY 06/09/2024 ESOPHAGOGASTRODUODENOSCOPY Medical History Medical History Date Comments Asthma COPD (chronic obstructive pu lmonary disease) (HCC) Endometrial cancer (HCC) 06/11/1980 Pt had hysterectomy to remover DM (diabetes mellitus) (HCC) HTN (hypertension) [place] (obstructive sleep apnea) Tobacco abuse HLD (hyperlipidemia) Low bone mass Adenomatous colon polyp Family History Medical History Relation Name Comments Colon polyps Father Breast cancer Mother Breast cancer Sister Relation Name Status Comments Father Mother Sister Social History Tobacco Use Types Packs/Day Years Used Date Smoking Tobacco: Every Day Cigarettes 1 30 Smokeless Tobacco: Never Tobacco Cessation:Ready to Q uit: Not Asked; Counseling Given: Not Answered AUDIT-C Answer Date Recorded Q1: How often [...] on file Legal Sex Female 2:27 PM G[employer] Gender Identity Not on file Sexual Orientation Not on file Obstetrics History Para Term AB IAB SAB Ectopic Multiple Livin g Live Births 2 2 2 Date Outcome GA Total Labor Labor/2nd/3rd Weight Sex Type Anes PTL Radha A1 A5 Name Clin Term Term Last Filed Vital Signs Vital Sign Reading Time Taken Comments Blood Pressure 110/81 06/09/2024 8:36 AM G[employer] LEAF [employer]ER Pulse 80 06/09/2024 8:36 AM [employer] Temperature 36.9 C (98.5 F) 06/09/2024 8:36 AM [employer]ER Respiratory Rate 16 06/09/2024 8:36 AM G[employer] LEAF [employer]ER Oxygen Saturation 98% 06/09/2024 8:36 AM G[employer] LEAF [employer]ER Inhaled Oxygen Concentration - - Weight 80.3 kg (177 lb) 06/09/2024 7:14 AM G[employer] Height 167.6 cm (5' 6 ) 06/09/2024 7:14 AM [employer] Body Mass Index 28.57 06/09/2024 7:14 AM G[employer] LEAF [employer] Plan of Treatment Health Maintenance Due Date Last Done Comments Depression Screening 1950 Hepatitis C Screening 1950 DTaP/Tdap/Td Vaccine (1 - Tdap) 08/14/1963 Hepatitis B Screening 1970 Well Visit 65+ 2017 Covid-19 Vaccine (3 - Pfizer risk series) 10/08/2020 09/10/2020, 08/20/2020 Breast Cancer Screening-Mammogram 12/08/2023 12/07/2022, 12/07/2022, 10/26/2021, Additional history exists Influenza Vaccine (Season Ended) 2025 03/25/2020, 03/22/2018, 03/14/2018 Lung Cancer Screening 05/20/2025 05/19/2024 Fall Risk Assessment 06/09/2025 06/09/2024 Osteoporosis Screening-Bone Density Scan 10/22/2025 10/23/2023, 10/23/2023, 08/16/2020 Colon Cancer Screening-Colonoscopy 06/09/2034 06/09/2024, 02/03/2011 Pneumococcal vaccine 65+ Completed 05/12/2021, 10/2019 Zoster Vaccine Completed 05/12/2021, 03/12, 07/02/2013 Colon Cancer Screening-CT Colonography Discontinued 06/09/2024, 02/03/2011 Colon Cancer Screening-DNA Stool Discontinued 06/09/20 24, 02/03/2011 Colon Cancer Screening-FIT Discontinued 06/09/2024, Colon Cancer Screening-Sigmoidoscopy Discontinued 06/09/2024, 02/03/2011 Medical Devices Implanted Type Area Production Painter Device Identifier Shelf Expiration Date Model / Serial / Lot Thinkr [id number] Biomonitor Iii Monitor Cardiac Sterile Disposable Latex Free - [id number] - [id number] Implanted:Qty: 1 on 05/18/2021 by Andrea Booth MD at [facility] Implantable Loop Recorder [employer] 08/08/2022 [id number] / [id number] / Procedures Procedure Name Priority Date/Time Associated Diagnosis Comments EGFR Routine 09/03/2024 1:46 PM CDT URINALYSIS, MICROSCOPIC ONLY Routine 09/03/2024 1:46 PM CDT URINALYSIS AND REFLEX TO MICROSCOPIC Routine 09/03/2024 1:46 PM CDT VITAMIN B12 Routine 09/03/2024 1:46 PM CDT COMPREHENSIVE METABOLIC PANEL Routine 09/03/2024 1:46 PM CDT DRUGS OF ABUSE SCREEN, URINE WITH REFLEX CONFIRMATION Routine 09/03/2024 1:46 PM CDT URINE CULTURE Routine 09/03/2024 1:46 PM CDT DEVICE CHECK - REMOTE Routine 09/02/2024 9:43 AM CDT Syncope, unspecified syncope type Implantable loop recorder present URINALYSIS, MICROSCOPIC ONLY Routine 08/01/2024 11:48 AM G[employer] LEAF [employer]ER URINALYSIS AND REFLEX TO MICROSCOPIC Routine 08/01/2024 11:48 AM G[employer]ER ALBUMIN CREATININE RATIO, URINE Routine 08/01/2024 11:48 AM G[employer] LEAF [employer]ER DRUGS OF ABUSE SCREEN, URINE WITH REFLEX CONFIRMATION Routine 08/01/2024 11:48 AM G[employer] LEAF [employer]ER URINE CULTURE Routine 08/01/2024 11:48 AM G[employer] LEAF [employer]ER DEVICE CHECK - REMOTE Routine 07/30/2024 11:28 AM G[employer]ER Syncope, unspecified syncope type Implantable loop recorder present COLONOSCOPY 06/09/2024 7:[address] LUNG CANCER SCREENING Schedule Routine, Read Routine (OP Routine) 05/19/2024 11:22 AM G[employer] LEAF [employer]ER Nicotine dependence, cigarettes, uncomplicated SCREENING MAMMOGRAM BILATERAL W WILLIE Schedule Routine, Read Routine (OP Routine) 12/07/2022 12:54 PM CDT Screening mammogram, encounter for DEXA AXIAL SKELETON BONE DENSITY 1 OR MORE SITES Schedule Routine, Read Routine (OP Routine) 08/16/2020 10:17 AM G[employer] LEAF [employer]ER Asymptomatic menopausal state from Last 3 Months or Most Recently Relevant to Health Maintenance Results * (ABNORMAL) Drugs of Abuse Screen, Urine with Reflex Confirmation (09/03/2024 1:46 PM CDT) Amphetamine, ur Not Detected CutOff 500ng/mL Comment: Interpretive Data - Amphetamines: Samples containing greater than 500 ng/mL d-methamphetamine or other cross-reacting amphetamine compounds are reported as positive. Amphetamine immunoassays are subject to significant false positive rates due to cross-reactivity of non-amphetamine drugs. Confirmatory testing required for definitive results. Current Interpretive Data was last reviewed 2023. Barbiturates, ur Not Detected CutOff 200ng/mL [facility] ([facility]) Comment: Interpretive Data - Barbiturates: Samples containing greater than 200 ng/mL secobarbital or other cross-reacting barbiturate compounds are reported as positive. False positive and false negative results are possible. Confirmatory testing required for definitive results. Current Interpretive Data was last reviewed 2023. Benzodiazepines, ur Not Detected CutOff 100ng/mL [facility] ([facility]) Comment: Interpretive Data - Benzodiazepines: Samples containing greater than 100 ng/mL nordiazepam or other cross-reacting compounds are reported as positive. False positive and false negative results are possible. Confirmatory testing required for definitive results. Current Interpretive Data was last reviewed 2023. Cannabinoids, ur Screen Positive, presumptive (A) CutOff 50 ng/mL [facility] ([facility]) Comment: Interpretive Data - Cannabinoids: Samples containing greater than 50 ng/mL delta-9 THC -COOH or other cross- reacting compounds are reported as positive. False positive and false negative results are possible. Confirmatory testing required for definitive results. Current Interpretive Data was last reviewed 2023. Cocaine, ur Not Detected CutOff 150ng/mL [facility] ([facility]) Comment: Interpretive Data - Cocaine: Samples containing greater than 150 ng/mL benzoylecgonine or other cross- reacting compounds are reported as positive. False positive and false negative results are possible. Confirmatory testing required for definitive results. Current Interpretive Data was last reviewed 2023. Fentanyl, Ur Not Detected CutOff 5 ng/mL [facility] ([facility]) Comment: Interpretive Data - Fentanyl: Samples containing greater than 5 ng/mL norfentanyl, fentanyl, or other cross-reacting fentanyl compounds are reported as positive. False positive and false negative results are possible. Confirmatory testing required for definitive results. Current Interpretive Data was last reviewed 2023. Methadone, ur Not Detected CutOff 300ng/mL [facility] ([facility]) Comment: Interpretive Data - Methadone: Samples containing greater than 300 ng/mL d,l-methadone or other cross-reacting compounds are reported as positive. False positive and false negative results are possible. Confirmatory testing required for definitive results. Current Interpretive Data was last reviewed 2023. Opiates, ur Not Detected CutOff 300ng/mL [facility] ([facility]) Comment: Interpretive Data - Opiates: Samples containing greater than 300 ng/mL morphine or other cross-reacting compounds are reported as positive. False positive and false negative results are possible. Confirmatory testing required for definitive results. Current Interpretive Data was last reviewed 2023. Oxycodone, ur Not Detected CutOff 100ng/mL [facility] ([facility]) Comment: Interpretive Data - Oxycodone: Samples containing greater than 100 ng/mL oxycodone or other cross-reacting compounds are reported as positive. False positive and false negative results are possible. Confirmatory testing required for definitive results. Current Interpretive Data was last reviewed 2023. Phencyclidine, ur Not Detected CutOff 25 ng/mL [facility] ([facility]) Comment: Interpretive Data - Phencyclidine: Samples containing greater than 25 ng/mL phencyclidine or other cross-reacting compounds are reported as positive. False positive and false negative results are possible. Confirmatory testing required for definitive results. Current Interpretive Data was last reviewed 2023. Urine Creatinine 61 mg/dL [facility] ([facility]) Comment: Interpretive Data Urine Creatinine: < 10 mg/dL is extremely dilute = or > 10 but < 20 mg/dL is dilute = or > 20 mg/dL is normal Current Interpretive Data was last revised on 2017. Urine 09/03/2024 1:46 PM CDT 09/03/2024 1:59 PM CDT Narrative [facility] ([facility]) - 09/03/2024 2:32 PM CDT Drug of Abuse screening is performed by immunoassay for medical purposes only. This is not to be used for Pain Management purposes. If Detected, confirmation testing will be performed for Amphetamines, Cocaine, Fentanyl, Methadone, Opiates, Oxycodone or Phencyclidine. us Celio Del Valle MD LAB URINE ORDERABLES Ambreen l Result [facility] ([facility]) 1 [facility] [place] [address] * (ABNORMAL) eGFR (09/03/2024 1:46 PM CDT) eGFR 53(L) >=60 mL/min/1. 73 m2 Comment: Interpretive Data Reference Interval Normal >/= 90 mL/min/1.73m2 Mildly decreased* 60 - 89 mL/min/1.73m2 Mildly to moderately decreased 45 - 59 mL/min/1.73m2 Moderately to severely decreased 30 - 44 mL/min/1.73m2 Severely decreased 15 - 29 mL/min/1.73m2 Kidney Failure < 15 mL/min/1.73m2 *Relative to young adult level Estimated glomerular filtration rate is determined by the 2020 CKD-EPI equation recommended by the National Kidney Foundation (A Unifying Approach to GFR Estimation: Recommendations of the NKF-ASK Task Force on Reassessing the Inclusion of Race in Diagnosing Kidney Disease, JASN 2020). The CKD-EPI equation should not be used for patients with unstable renal function and has not been validated in children and those over 70. Current interpretive data was last reviewed 2021. Blood 09/03/2024 1:46 PM CDT 09/03/2024 1:58 PM CDT us Celio Del Valle MD LAB BLOOD ORDERABLES Ambreen l Result [facility] ([facility]) 1 [facility] [place] [address] * (ABNORMAL) Urinalysis reflex to microscopic (09/03/2024 1:46 PM CDT) Color, ur Yellow Yellow Clarity, ur Clear Clear [facility] ([facility]) Specific gravity, ur 1.011 1.003 - 1.030 [facility] ([facility]) pH, urine 6.5 [facility] ([facility]) Comment: Interpretive Data U rine pH is affected by diet, medications, systemic acid-base disturbances, and renal tubular function. pH may affect urinary stone formation. For example, urine pH below 6.0 may help reduce the tendency for calcium phosphate stones and pH greater than 6.0 may reduce the tendency for uric acid stone formation. Source: [facility] Current Interpretive Data was last revised on 2017 Protein, ur ql Negative Negative [facility] ([facility]) Glucose, ur ql Negative Negative [facility] ([facility]) Ketones, ur Negative Negative [facility] ([facility]) Bilirubin, ur Negative Negative [facility] ([facility]) Blood, ur Negative Negative [facility] ([facility]) Urobilinogen, ur <2.0 <2.0 mg/dL [facility] ([facility]) Nitrite, ur Negative Negative [facility] ([facility]) Leukocyte esterase, ur 1+(A) Negative [facility] ([facility]) UA reflex comment Reflex to microscopic UA will be performed. [facility] ([facility]) Urine 09/03/2024 1:46 PM CDT 09/03/2024 1:59 PM CDT us Celio Del Valle MD LAB URINE ORDERABLES Ambreen l Result [facility] ([facility]) 1 [facility] [place] [address] * (ABNORMAL) Urinalysis, microscopic only (09/03/2024 1:46 PM CDT) WBC, ur 0-5 0 - 5 /HPF RBC, ur 0-2 0 - 2 /HPF [facility] ([facility]) Epithelial cells, squamous, ur 1-5 0 - 5 /HPF [facility] ([facility]) Bacteria, ur Trace(A) [facility] ([facility]) Hyaline casts, ur 1-5 0 - 10 /LPF [facility] ([facility]) Urine 09/03/2024 1:46 PM CDT 09/03/2024 1:59 PM CDT us Celio Del Valle MD LAB URINE ORDERABLES Ambreen l Result Performing Organization Address [facility]/ZIP Co de Phone Number [facility] ([facility]) 1 [facility] [employer] [place] [address] * Urine culture Urine (09/03/2024 1:46 PM CDT) Report Final Report: Less than 100,000 colonies/mL (clinically insignificant growth based on current clinical standards) Comment:Testing performed by : [facility], [address] [facility] [place] [address] Organism (CLINICALLY INSIGNIFICANT GROWTH [facility] ([facility]) Urine 09/03/2024 1:46 PM CDT 09/03/2024 4:24 PM CDT Narrative [facility] ([facility]) - 09/04/2024 5:42 PM CDT Testing performed by [facility]biology Laboratory ([phone]) us Celio Del Valle MD LAB MICROBIOLOGY - GENERA L ORDERABLES Final Result [facility] ([facility]) 1 [facility] [place] [address] * (ABNORMAL) Vitamin B12 (09/03/2024 1:46 PM CDT) Vitamin B12 1,901(H) 230 - 1,250 pg/mL Blood 09/03/2024 1:46 PM CDT 09/03/2024 1:58 PM CDT us Celio Del Valle MD LAB BLOOD ORDERABLES Ambreen go Result [facility] ([facility]) 1 [facility] [place] [address] * (ABNORMAL) Comprehensive metabolic panel (09/03/2024 1:46 PM CDT) Sodium 137 135 - 145 mmol/L Potassium, pl 4.6 3.3 - 4.9 mmol/L [facility] ([facility]) Chloride 105 97 - 110 mmol/L [facility] ([facility]) CO2 22 22 - 32 mmol/L [facility] ([facility]) Anion gap 9 2 - 15 mmol/L [facility] ([facility]) BUN 25 6 - 25 mg/dL [facility] ([facility]) Creatinine 1.11(H) 0.60 - 1.10 mg/dL [facility] ([facility]) Glucose 79 70 - 199 mg/dL [facility] ([facility]) Comment: Interpretive Data Fasting glucose >/= 126 mg/dl is diagnostic for diabetes. Fasting is defined as no caloric intake for at least 8 hours. Fasting glucose between 100 mg/dl to 125 mg/dl is diagnostic of prediabetes. In a patient with classic symptoms of hyperglycemia or hyperglycemic crisis, a random glucose >/= 200 mg/dl is diagnostic for diabetes. In the absence of unequivocal hyperglycemia, results should be confirmed by repeat testing. The classification and Diagnosis of Diabetes Diabetes Care 2021; 46: S19-S40. Current interpretive data was last revised 2022. Calcium 9.2 8.5 - 10.3 mg/dL [facility] ([facility]) Bilirubin, total 0.3 0.1 - 1.2 mg/dL [facility] ([facility]) Protein, pl 6.4(L) 6.5 - 8.5 g/dL [facility] ([facility]) Albumin 3.8 3.5 - 5.0 g/dL [facility] ([facility]) Alk phos 63 40 - 130 Units/L [facility] ([facility]) ALT 17 7 - 45 Units/L [facility] ([facility]) AST 23 10 - 45 Units/L [facility] ([facility]) Blood 09/03/2024 1:46 PM CDT 09/03/2024 1:58 PM CDT us Celio Del Valle MD LAB BLOOD ORDERABLES Ambreen go Result [facility] ([place]) 1 [facility] [place] [address] * DEVICE CHECK - REMOTE (09/02/2024 9:43 AM CDT) Anatomical Region Laterality Modality Other Narrative 09/04/2024 6:32 AM CDT Images from the original result were not included. 09/03/2024 [employer] monthly remote check The complete report is attached and is also available in Visit Navigator under Deployment Specialist Last periodic SECG (Sep 03, 2024, 1:20:00 AM) No episodes this monitoring period Next Appointment: 11/24/24 Reviewed By Chayito Glasgow RN BSN ATTESTATION I have reviewed the device interrogation report associated with this encounter in detail. I agree with the documentation recorded/scanned into the electronic medical record. Recommendations: Continue current device follow-up. Elieser Christensen MD us Elieser Christensne MD [facility] CARDIAC SERVICES PROCEDURES Final Result * (ABNORMAL) Drugs of Abuse Screen, Urine with Reflex Confirmation (08/01/2024 11:48 AM G[employer] LEAF ROLLER) Amphetamine, ur Not Detected CutOff 500ng/mL Comment: Interpretive Data - Amphetamines: Samples containing greater than 500 ng/mL d-methamphetamine or other cross-reacting amphetamine compounds are reported as positive. Amphetamine immunoassays are subject to significant false positive rates due to cross-reactivity of non-amphetamine drugs. Confirmatory testing required for definitive results. Current Interpretive Data was last reviewed 2023. Barbiturates, ur Not Detected CutOff 200ng/mL [facility] ([facility]) Comment: Interpretive Data - Barbiturates: Samples containing greater than 200 ng/mL secobarbital or other cross-reacting barbiturate compounds are reported as positive. False positive and false negative results are possible. Confirmatory testing required for definitive results. Current Interpretive Data was last reviewed 2023. Benzodiazepines, ur Screen Positive, presumptive (A) CutOff 100ng/mL [facility] ([facility]) Comment: Interpretive Data - Benzodiazepines: Samples containing greater than 100 ng/mL nordiazepam or other cross-reacting compounds are reported as positive. False positive and false negative results are possible. Confirmatory testing required for definitive results. Current Interpretive Data was last reviewed 2023. Cannabinoids, ur Not Detected CutOff 50 ng/mL [facility] ([facility]) Comment: Interpretive Data - Cannabinoids: Samples containing greater than 50 ng/mL delta-9 THC -COOH or other cross- reacting compounds are reported as positive. False positive and false negative results are possible. Confirmatory testing required for definitive results. Current Interpretive Data was last reviewed 2023. Cocaine, ur Not Detected CutOff 150ng/mL [facility] ([facility]) Comment: Interpretive Data - Cocaine: Samples containing greater than 150 ng/mL benzoylecgonine or other cross- reacting compounds are reported as positive. False positive and false negative results are possible. Confirmatory testing required for definitive results. Current Interpretive Data was last reviewed 2023. Fentanyl, Ur Not Detected CutOff 5 ng/mL [facility] ([facility]) Comment: Interpretive Data - Fentanyl: Samples containing greater than 5 ng/mL norfentanyl, fentanyl, or other cross-reacting fentanyl compounds are reported as positive. False positive and false negative results are possible. Confirmatory testing required for definitive results. Current Interpretive Data was last reviewed 2023. Methadone, ur Not Detected CutOff 300ng/mL [facility] ([facility]) Comment: Interpretive Data - Methadone: Samples containing greater than 300 ng/mL d,l-methadone or other cross-reacting compounds are reported as positive. False positive and false negative results are possible. Confirmatory testing required for definitive results. Current Interpretive Data was last reviewed 2023. Opiates, ur Not Detected CutOff 300ng/mL [facility] ([place]) Comment: Interpretive Data - Opiates: Samples containing greater than 300 ng/mL morphine or other cross-reacting compounds are reported as positive. False positive and false negative results are possible. Confirmatory testing required for definitive results. Current Interpretive Data was last reviewed 2023. Oxycodone, ur Not Detected CutOff 100ng/mL EMILY PEREZ ([place]) Comment: Interpretive Data - Oxycodone: Samples containing greater than 100 ng/mL oxycodone or other cross-reacting compounds are reported as positive. False positive and false negative results are possible. Confirmatory testing required for definitive results. Current Interpretive Data was last reviewed 2023. Phencyclidine, ur Not Detected CutOff 25 ng/mL EMILY PEREZ ([place]) Comment: Interpretive Data - Phencyclidine: Samples containing greater than 25 ng/mL phencyclidine or other cross-reacting compounds are reported as positive. False positive and false negative results are possible. Confirmatory testing required for definitive results. Current Interpretive Data was last reviewed 2023. Urine Creatinine 58 mg/dL SUNIL PEREZ ([place]) Comment: Interpretive Data Urine Creatinine: < 10 mg/dL is extremely dilute = or > 10 but < 20 mg/dL is dilute = or > 20 mg/dL is normal Current Interpretive Data was last revised on 2017. Urine 08/01/2024 11:4 8 AM GOLD LEAF ROLLER 08/01/2024 3:28 PM G[employer] LEAF ROLLER Narrative EMILY PEREZ ([place]) - 08/01/2024 4:11 PM G[employer] LEAF ROLLER Drug of Abuse screening is performed by immunoassay for medical purposes only. This is not to be used for Pain Management purposes. If Detected, confirmation testing will be performed for Amphetamines, Cocaine, Fentanyl, Methadone, Opiates, Oxycodone or Phencyclidine. us Celio Del Valle MD LAB URINE ORDERABLES Ambreen go Result EMILY PEREZ ([place]) 1 [facility] Department [place] [address] * (ABNORMAL) Urinalysis reflex to microscopic (08/01/2024 11:48 AM GOLD LEAF ROLLER) Color, ur Yellow Yellow Clarity, ur Clear Clear EMILY Borrero ([place]) Specific gravity, ur 1.011 1.003 - 1.030 EMILY PEREZ ([place]) pH, urine 6.5 EMILY PEREZ ([place]) Comment: Interpretive Data U rine pH is affected by diet, medications, systemic acid-base disturbances, and renal tubular function. pH may affect urinary stone formation. For example, urine pH below 6.0 may help reduce the tendency for calcium phosphate stones and pH greater than 6.0 may reduce the tendency for uric acid stone formation. Source: [facility] Current Interpretive Data was last revised on 2017 Protein, ur ql Trace Negative [facility] ([place]) Glucose, ur ql Negative Negative [facility] ([place]) Ketones, ur Negative Negative [facility] ([place]) Bilirubin, ur Negative Negative [facility] ([place]) Blood, ur Negative Negative [facility] ([place]) Urobilinogen, ur <2.0 <2.0 mg/dL [facility] ([place]) Nitrite, ur Negative Negative [facility] ([place]) Leukocyte esterase, ur 3+(A) Negative [facility] ([place]) UA reflex comment Reflex to microscopic UA will be performed. [facility] ([place]) Urine 08/01/2024 11:4 8 AM GOLD LEAF ROLLER 08/01/2024 11:54 AM GOLD LEAF ROLLER us Celio Del Valle MD LAB URINE ORDERABLES Ambreen go Result EMILY PEREZ ([place]) 1 [facility] Department [place] [address] * (ABNORMAL) Albumin Creatinine Ratio, Urine (08/01/2024 11:48 AM GOLD LEAF ROLLER) Albumin Ur 29.0 mg/L Comment: Interpretive Data No reference range established. Current interpretive data was last revised 2018. Testing performed by: [facility], [address] [place] [address], [place]., [address] Creatinine Ur 55.5 mg/dL [facility] ([place]) Comment: Interpretive Data No reference range established. Current interpretive data was last revised 2018. Testing performed by: [address] [place] [address] Albumin Creatinine Ratio, Ur 52(H) 1 - 29 mg/g [facility] ([place]) Comment:Testing performed by : [facility], [address] [place] [address]., [id number] Urine 08/01/2024 11:4 8 AM GOLD LEAF ROLLER 08/01/2024 2:35 PM GOLD LEAF ROLLER us Celio Del Valle MD LAB URINE ORDERABLES Ambreen l Result Performing Organization Address [facility]/ZIP Co de Phone Number EMILY [facility] ([place]) [address] [place] [address] [place] [address] * (ABNORMAL) Urinalysis, microscopic only (08/01/2024 11:48 AM GOLD LEAF ROLLER) WBC, ur 0-5 0 - 5 /HPF RBC, ur 0-2 0 - 2 /HPF [facility] ([place]) Epithelial cells, squamous, ur 1-5 0 - 5 /HPF [facility] ([place]) Mucous, ur Present(A) [facility] ([place]) Urine 08/01/2024 11:4 8 AM GOLD LEAF ROLLER 08/01/2024 11:54 AM GOLD LEAF ROLLER us Celio Del Valle MD LAB URINE ORDERABLES Ambreen l Result Performing Organization Address [facility]/ZIP Co de Phone Number EMILY [facility] ([place]) [address] [place] [address] [place] [address] * Urine culture Urine (08/01/2024 11:48 AM GOLD LEAF ROLLER) Report Final Report: Less than 100,000 colonies/mL (clinically insignificant growth based on current clinical standards) Comment:Testing performed by : [facility], [address] [place]., [address] Organism (CLINICALLY INSIGNIFICANT GROWTH CERSHERRI [facility] ([place]) Urine 08/01/2024 11:4 8 AM GOLD LEAF ROLLER 08/01/2024 6:07 PM GOLD LEAF ROLLER Narrative EMILY [facility] ([place]) - 08/02/2024 8:19 PM GOLD LEAF ROLLER Testing performed by [facility] ([phone]) us Celio Del Valle MD LAB MICROBIOLOGY - GENERA L ORDERABLES Final Result EMILY PEREZ [place]) 1 [facility] Department of Laboratories [place], [place] [id number] * DEVICE CHECK - REMOTE (07/30/2024 11:28 AM GOLD LEAF ROLLER) Anatomical Region Laterality Modality Other Narrative 08/01/2024 5:04 PM GOLD LEAF ROLLER Images from the original result were not included. 07/30/2024 [employer] monthly remote check The complete report is attached and is also available in Visit Navigator under Deployment Specialist Next Appointment: 11/24/2024 No episodes this monitoring period Reviewed By Chayito Glasgow RN BSN ATTESTATION I have reviewed the device interrogation report associated with this encounter in detail. I agree with the documentation recorded/scanned into the electronic medical record. Recommendations: Continue current device follow-up. Elieser Christensen MD us Elieser Christensen MD [facility] C[facility] PROCEDURES Final Result * Colonoscopy (06/09/2024 7:05 AM GOLD LEAF ROLLER) Anatomical Region Laterality Modality Other Narrative Procedure Note Richard Guadarrama, DO - 06/09/2024 7:05 AM CST [facility] Patient Name: Mare Estevez Procedure Date: 06/09/2024 7:05 AM Date of : 1950 Admit Type: Outpatient Age: 73 Gender: Female Attending MD: Richard Guadarrama D.O. Room: [facility] ENDOSCOPY ROOM 2 Note Status: Finalized Patient Profile: Refer to note in patient chart for documentation of history and physical. Procedure: Colonoscopy Indications: Screening for colorectal malignant neoplasm, Last colonoscopy: January 2011 Referring MD: Celio Del Valle M.D. Providers: Richard Guadarrama D.O. Impression: - The examined portion of the ileum was normal. - Two 2 to 4 mm polyps in the ascending colon,removed with a jumbo cold forceps. Resected andretrieved. - Diverticulosis in the left colon and in the right colon. - The examination was otherwise normal on directand retroflexion views. Recommendation: - Discharge patient to home. - Resume previous diet. - Continue present medications. - Await pathology results. - Repeat colonoscopy in 5 years for surveillance. - Return to primary care physician PRN. Medicines: Monitored Anesthesia Care Complications: No immediate complications. Estimated Blood Loss: Estimated blood loss was minimal. Procedure: Pre-Anesthesia Assessment: - As per anesthesia. The benefits, risks and alternatives of theprocedure and sedation were discussed and informed consentwas obtained. All questions were answered. Please referto the signed informed consent document in the medical record. The bowel preparation used was Miralax via split dose instruction. The bowel preparation usedwas bisacodyl tablets via split dose instruction. The scope was passed under direct vision. TheColonoscope [id number] was introduced through the anus and advanced to the 5 cm into the ileum. Theterminal ileum, ileocecal valve, appendiceal orifice, and rectum were photographed. The colonoscopy was performed without difficulty. The patient tolerated the procedure well. The quality of the bowel preparation was adequate. Findings: The perianal and digital rectal examinations were normal. The terminal ileum appeared normal. Two sessile polyps were found in the ascending colon. The polyps were2 to 4 mm in size. These polyps were removed with a jumbo cold forceps. Resection and retrieval were complete. Many diverticula were found in the left colon and right colon. The exam was otherwise without abnormality on direct and retroflexion views. A diffuse area of mild melanosis was found [Site]. Electronically signed by Richard Guadarrama M.D. Richard Guadarrama D.O. 06/09/2024 8:02:25 AM Number of Addenda: 0 Note Initiated On: 06/09/2024 7:05 AM Procedure Code(s): --- Professional --- 05839, Colonoscopy, flexible; with biopsy, single or multiple --- Technical --- 41010, Colonoscopy, flexible; with biopsy, single or multiple Diagnosis Code(s): --- Professional --- Z12.11, Encounter for screening for malignant neoplasm of colon D12.2, Benign neoplasm of ascending colon K57.30, Diverticulosis of large intestine without perforation orabscess without bleeding --- Technical --- Z12.11, Encounter for screening for malignant neoplasm of colon D12.2, Benign neoplasm of ascending colon K57.30, Diverticulosis of large intestine without perforation orabscess without bleeding CPT copyright 2020 [employer]. All rights reserved. The codes documented in this report are preliminary and upon clicker operator reviewmay be revised to meet current compliance requirements. Recognized by the [employer] for promoting quality in endoscopy us Richard Guadarrama DO ENDOSCOPY PROCEDURES Final Res ult * CT Lung Cancer Screening (05/19/2024 11:22 AM GOLD LEAF ROLLER) Anatomical Region Laterality Modality Chest N/A Computed Tomogra phy 05/24/2024 4:45 PM GOLD LEAF ROLLER Narrative 05/24/2024 4:49 PM GOLD LEAF ROLLER EXAM DESCRIPTION: CT LUNG CANCER SCREENING REASON FOR STUDY: Screening CT of the chest in a current smoker with a 50 pack year smoking history. Additional history: None. TECHNIQUE: Low dose CT scan of the chest was performed without intravenous contrast using helical scanning technique. The exam extends from the lung apices through the lung bases. Automatic exposure control was used as a dose optimization technique. NOTE: This study was performed for the specific purposes of lung cancer screening and is not an alternative to diagnostic chest CT. RADIATION DOSE: CT dose index volume (CTDIvol) = 1.72 mGy COMPARISON: 06/09/2022 FINDINGS: SMOKING RELATED LUNG DISEASE: Emphysematous changes most pronounced near the lung apices. LUNG NODULES: There is a new 3 mm nodule in the right middle lobe (axial image 159 of 227). A 3.5 mm pleural-based right lower lobe nodule (axial image 186 of 277) is stable. A 4 mm subpleural left lower lobe nodule (axial image 100 67 of 277 is stable. CORONARY ARTERY CALCIFICATION: Present OTHER: The heart is normal in size. No pneumothorax or pleural effusion is seen. A loop recorder superimposes the left anterior chest. There is a partially imaged right renal cyst. IMPRESSION: 1. Multiple small pulmonary nodules as above. Lung-RADS category 2: Benign appearance or behavior. Recommendation: Low dose Screening CT of chest in 12 months. THIS IS AN ELECTRONICALLY VERIFIED FINAL REPORT 05/24/2024 4:49 PM - Electronically signed by Philippe Smith M.D. BS: DANY Report ID: [id number] Reading Location: [place] [address] Procedure Note Philippe Smith MD - 05/24/2024 EXAM DESCRIPTION: CT LUNG CANCER SCREENING REASON FOR STUDY: Screening CT of the chest in a current smoker with a50 pack year smoking history. Additional history: None. TECHNIQUE: Low dose CT scan of the chest was performed without intravenous contrast using helical scanning technique. The exam extends from the lung apices through the lung bases. Automatic exposure control was used as adose optimization technique. NOTE: This study was performed for the specific purposes of lung cancer screening and is not an alternative to diagnostic chest CT. RADIATION DOSE: CT dose index volume (CTDIvol) = 1.72 mGy COMPARISON: 06/09/2022 FINDINGS: SMOKING RELATED LUNG DISEASE: Emphysematous changes most pronounced nearthe lung apices. LUNG NODULES: There is a new 3 mm nodule in the right middle lobe (axial image 159 of 227). A 3.5 mm pleural-based right lower lobe nodule (axial image 186 of 277) is stable. A 4 mm subpleural left lower lobe nodule(axial image 100 67 of 277 is stable. CORONARY ARTERY CALCIFICATION: Present OTHER: The heart is normal in size. No pneumothorax or pleural effusionis seen. A loop recorder superimposes the left anterior chest. There is a partially imaged right renal cyst. IMPRESSION: 1. Multiple small pulmonary nodules as above. Lung-RADS category 2: Benign appearance or behavior. Recommendation: Low dose Screening CT of chest in 12 months. THIS IS AN ELECTRONICALLY VERIFIED FINAL REPORT 05/24/2024 4:49 PM - Electronically signed by Philippe Smith M.D. BS: BS Report ID: [id number] Reading Location: [place] [address] Lizett Ricardo MD IMG CT PROCEDURES Final Result * Screening Mammogram Bilateral W Willie (12/07/2022 12:54 PM CDT) Anatomical Region Laterality Modality Breast Bilateral Mammography 12/07/2022 12:5 7 PM CDT Impressions 12/07/2022 12:57 PM CDT There is no mammographic evidence of malignancy. A 1 year screening mammogram is recommended. BI-RADS: 1 - Negative. The patient has been or will be contacted. The patient will be entered into a reminder system with a target due date of 1 year for her next mammogram. Electronically signed by: KWAKU García 12/07/2022 12:57 PM CDT EXAMINATION: SCREENING MAMMOGRAM BILATERAL W WILLIE ORDERING HEALTHCARE PROVIDER: SELF SCREENING MAMMOGRAM HISTORY: Routine screening mammography. COMPARISON: 10/26/2021, 08/16/2020, 06/26/2019, 05/02/2016. TECHNIQUE: CC and MLO views of both breasts were obtained with digital technique using digital breast tomosynthesis with C view. Computer aided detection was utilized. FINDINGS: DENSITY: The breasts are almost entirely fatty. BREASTS: There is an unchanged loop recorder in the left breast. There is no new suspicious finding in either breast on mammogram. us Self Screening Mammogram IMG MAMMO PROCEDURES Fi nal Result * Dexa Axial Skeleton Bone Density 1 or 2 Site (08/16/2020 10:17 AM GOLD LEAF ROLLER) Anatomical Region Laterality Modality Body N/A Other 08/16/2020 11:2 5 AM GOLD LEAF ROLLER Impressions 08/16/2020 11:26 AM GOLD LEAF ROLLER According to the World Health Organization criteria, based upon the left femoral neck bone mineral density (T score value of -1.2), the patient has low bone mass (osteopenia). In this patient with low bone mass not currently on biphosphonate therapy, the 10 year probability for major osteoporotic fracture is 14% and for hip fracture is 1.3%. According to the World Health Organization, biphosphonate therapy is indicated if 10 year risk for a major osteoporotic fracture is greater than or equal to 20% or the 10 year risk for hip fracture is greater than or equal to 3%. General Recommendations: 1. Consider an evaluation for secondary causes of osteoporosis in patients with low bone density. 2. All patients should be counseled on adequate intake of calcium (1200 mg/day), vitamin D (600-800 IU daily) and exercise. 3. The National Osteoporosis Foundation (NOF) guidelines recommend initiating pharmacological therapy, in addition to calcium, vitamin D and exercise, to reduce fracture risk when: a. T-score less than or equal to -2.5 after secondary causes excluded. b. T-score between -1.0 and -2.5 with secondary causes associated with high risk of fracture. c. 10-year probability of hip fracture more than or equal to 3% (based on FRAX score). d. 10-year probability of major osteoporosis related fracture more than or equal to 20% (based on FRAX score). Followup: People with diagnosed cases of osteoporosis or at high risk for fracture should have regular bone mineral density tests. For patients eligible for Medicare, routine testing is allowed once every 2 years. The testing frequency can be increased to one year for patients who have rapidly progressive disease or those who are receiving long-term steroid therapy. Electronically signed by: Marcial Ferguson M.D. Narrative 08/16/2020 11:26 AM GOLD LEAF ROLLER STUDY DESCRIPTION: DEXA AXIAL SKELETON BONE DENSITY 1 OR MORE SITES CLINICAL INDICATIONS: Postmenopausal. Parental hip fracture COMPARISON: None TECHNIQUE: Dual x-ray absorptiometry (DEXA) was performed using [employer] system. GENERAL GUIDELINES: According to WHO guidelines, a T score of -1.0 or greater is normal, between -1.0 to -2.4 is osteopenia, and -2.5 or less is osteoporosis. Z score (instead of T score) is preferred for pediatric, young adults, premenopausal women and men under age of 50 years. In these patients, a Z score greater than or equal to -2.0 is considered to be in the expected range. FINDINGS: LEFT FEMORAL NECK: T-score -1.2. Bone mineral density 0.717 g/sq/cm. LEFT TOTAL HIP: T-score 0.2. Bone mineral density 0.968 g/sq/cm. LUMBAR SPINE: T-score 0.9. Bone mineral density 1.146 g/sq/cm. Procedure Note Marcial Ferguson MD - 08/16/2020 STUDY DESCRIPTION: DEXA AXIAL SKELETON BONE DENSITY 1 OR MORE SITES CLINICAL INDICATIONS: Postmenopausal. Parental hip fracture COMPARISON: None TECHNIQUE: Dual x-ray absorptiometry (DEXA) was performed using [employer] system. GENERAL GUIDELINES: According to WHO guidelines, a T score of -1.0 or greater is normal, between -1.0 to -2.4 is osteopenia, and -2.5 or less is osteoporosis. Z score (instead of T score) is preferred for pediatric, young adults, premenopausal women and men under age of 50 years. In these patients, a Z score greater than or equal to -2.0 is considered to be in the expected range. FINDINGS: LEFT FEMORAL NECK: T-score -1.2. Bone mineral density 0.717 g/sq/cm. LEFT TOTAL HIP: T-score 0.2. Bone mineral density 0.968 g/sq/cm. LUMBAR SPINE: T-score 0.9. Bone mineral density 1.146 g/sq/cm. IMPRESSION: According to the World Health Organization criteria, based upon the left femoral neck bone mineral density (T score value of -1.2), the patient has low bone mass (osteopenia). In this patient with low bone mass not currently on biphosphonate therapy, the 10 year probability for major osteoporotic fracture is 14% and for hip fracture is 1.3%. According to the World Health Organization, biphosphonate therapy is indicated if 10 year risk for a major osteoporotic fracture is greater than or equal to 20% or the 10 year risk for hip fracture is greater than or equal to 3%. General Recommendations: 1. Consider an evaluation for secondary causes of osteoporosis in patients with low bone density. 2. All patients should be counseled on adequate intake of calcium (1200 mg/day), vitamin D (600-800 IU daily) and exercise. 3. The National Osteoporosis Foundation (NOF) guidelines recommend initiating pharmacological therapy, in addition to calcium, vitamin D and exercise, to reduce fracture risk when: a. T-score less than or equal to -2.5 after secondary causes excluded. b. T-score between -1.0 and -2.5 with secondary causes associated with high risk of fracture. c. 10-year probability of hip fracture more than or equal to 3% (based on FRAX score). d. 10-year probability of major osteoporosis related fracture more than or equal to 20% (based on FRAX score). Followup: People with diagnosed cases of osteoporosis or at high risk for fracture should have regular bone mineral density tests. For patients eligible for Medicare, routine testing is allowed once every 2 years. The testing frequency can be increased to one year for patients who have rapidly progressive disease or those who are receiving long-term steroid therapy. Electronically signed by: Marcial Ferguson M.D. Tom Braden NP IMG DXA PROCEDURES Final Res ult from Last 3 Months or Most Recently Relevant to Health Maintenance Insurance MEDICARE [facility] AET MEDICARE MEDICARE [facility] MEDICARE Advance Directives For more information, please contact: [phone] * Full Code (Latest Code Status on File) Date Activated Date Inactivated Comments 06/09/2024 7:06 AM 06/09/2024 12:49 PM * Full Code Date Activated Date Inactivated Comments 06/09/2024 7:06 AM 06/09/2024 7:06 AM * Full Code Date Activated Date Inactivated Comments 01/12/2022 8:27 AM 01/12/2022 1:52 PM * Full Code Date Activated Date Inactivated Comments 01/12/2022 8:26 AM 01/12/2022 8:26 AM * Full Code Date Activated Date Inactivated Comments 05/18/2021 10:24 AM 05/18/2021 3:52 PM Care Teams Professor Of Violin Relationship Specialty Start Date End Date Celio Del Valle MD PCP - General Family Practice 09/26/23
--- OUTSIDE RECORDS SUMMARY | 2024-10-08 13:18 | XMS_ITS | Data Portability ---
Author Organization [facility] Address [address] [place] [address] [place] [address] Care Team Providers Care Operations Agent Name Role Phone GENEVIEVE ABURTO Primary Care Provider Assessment Encounter Date Assessment Date Assessment LastModified by Organization Details LastModified Time 10/23/2023 10/23/2023 Annual gynecological exam performed. Patient will come back in a year unless there are new symptoms. Not available 10/23/2023 12:20:35 Plan of Treatment Reminders Order Date Submit Date Provider Last Modified By Organization Details Last Modified Time Details Appointments None recorded. Lab None recorded. Referral None recorded. Procedures None recorded. Surgeries None recorded. Imaging MAMMO, screening, bilateral 2023 024 [facility], [address], [place], [address], 12:54:44 Medication Orders lactulose 10 gram/15 mL oral solution 2023 024 [id number], [address], [place], [address], 12:50:16 Patient TargetsNo targets recorded. Patient InstructionsNo instructions recorded. Reason for Referral None Reported. Problems Name Problem SNOMED Code Status Onset Date Resolution Date Notes Provider Name and Address Organization Details Recorded Time Menopause present 148374986 Active 2018 Menopausal and female climacteri c states;Rec orded Elsewhere: No Locatio n: [facility] Nadia rce: EHR Chroni c: N Practice ID: 0001 José Manuel ble Time: 04:00:00 PM Not Available [facility] 0 17:44:54 Problem Notes None recorded. Procedures Surgical History Date Name Laterality Status Provider Name and Address Organization Details Recorded Time 06/11/19 23 Date of Last Mammogram completed [facility] 10/23/2023 12:23:27 06/11/19 21 Date of Last Colonoscopy completed [facility] 10/23/2023 12:24:08 06/11/19 05 operative procedure on knee completed [facility] 10/23/2023 12:29:10 06/11/18 70 Partial Hysterectomy completed [facility] 10/23/2023 12:28:36 tonsilectomy/harpreet noids completed [facility] 10/23/2023 12:29:23 Imaging Results None recorded. Procedure Notes None recorded. Medical Equipment None Reported. Allergies Allergen ID Allergen Name Allergen Category Reaction Reaction Severity Criticality Documentation Date Start Date Code Code System Note Provider Name and Address Organization Details Recorded Time 90476 levofloxa michi medicatio n Not available Not available Not available 05/28/2020 55312 RxNorm Comme nt: [facility]at [facility] Cau sativ e Agent : Levaq uin; Not Available [facility] 0 14:20:46 19127 latex environme nt,medica tion Not available Not available Not available 05/28/2020 54967 91 RxNorm Comme nt: [facility]at [facility]; Not Available [facility] 0 14:20:46 Medications Name Sig Start Date Stop Date Status Note LastModified by Organization Details LastModified Time desoximet asone 0.05 % topical cream apply by topical route 2 times every day a thin layer to the affected area(s) ; rub in gently and complete ly active Prescrib ed Elsewher e: Yes Loca tion: Goran cintron [facility] odify By: freeman daly DateTime : 06/19/19 09:38:39 AM Not Available Not Available Not Available Medrol 2 mg tablet take 1 tablet by oral route 4 times every day with food active Prescrib ed Elsewher e: Yes Loca tion: Goran cintron [facility] odify By: freeman andrewsuntema DateTime : 06/19/19 09:38:39 AM Not Available Not Available Not Available ibuprofen 200 mg capsule take 1 capsule by oral route every 6 hours as needed active Prescrib ed Elsewher e: Yes Loca tion: Goran cintron [facility] odify By: freeman andrewsunter DateTime : 06/19/19 09:38:39 AM Not Available Not Available Not Available amlodipin e 2.5 mg tablet take 1 tablet by oral route every day active Prescrib ed Elsewher e: Yes Loca tion: Goran cintron [facility] odify By: freeman daly DateTime : 06/19/19 09:38:39 AM Not Available Not Available Not Available fluoxetin e 10 mg capsule take 1 capsule by oral route every day active Prescrib ed Elsewher e: Yes Loca tion: Goran cintron [facility] odify By: freeman daly DateTime : 06/19/19 09:38:39 AM Not Available Not Available Not Available mupirocin 2 % topical ointment apply by topical route 2 times every day a small amount to the affected area active Prescrib ed Elsewher e: Yes Loca tion: Goran cintron [facility] odify By: freeman andrewsuntema DateTime : 06/19/19 09:38:39 AM Not Available Not Available Not Available hydroxych loroquine 200 mg tablet take 1 tablet by oral route every day active Prescrib ed Elsewher e: Yes Loca tion: Goran cintron [facility] odify By: freeman daly DateTime : 06/19/19 09:38:39 AM Not Available Not Available Not Available cholecalc iferol (vitamin D3) 10 mcg (400 unit) capsule active Prescrib ed Elsewher e: Yes Loca tion: Goran cintron [facility] odify By: freeman andrewsuntema DateTime : 06/19/19 09:38:39 AM Not Available Not Available Not Available monteluka st 4 mg oral granules in packet active Prescrib ed Elsewher e: Yes Loca tion: Goran cintron [facility] odify By: freeman andrewsuntema DateTime : 06/19/19 09:38:39 AM Not Available Not Available Not Available lactulose 10 gram/15 mL oral solution Take 15 mL every day by oral route as directed for 30 days. 2023 active Not Available Not Available Not Avai lable aripipraz ole 1 mg/mL oral solution take 15 millilit er by oral route every day active Prescrib ed Elsewher e: Yes Loca tion: Goran cintron [facility] odify By: freeman andrewsuntema DateTime : 06/19/19 09:38:39 AM Not Available Not Available Not Available senna 176 mg/5 mL oral syrup active Prescrib ed Elsewher e: Yes Loca tion: Goran cintron [facility] odify By: freeman andrewsuntema DateTime : 06/19/19 09:38:39 AM Not Available Not Available Not Available Daytrana 10 mg/9 hr daily patch active Prescrib ed Elsewher e: Yes Loca tion: Goran cintron [facility] odify By: freeman daly DateTime : 06/19/19 09:38:39 AM Not Available Not Available Not Available Januvia 25 mg tablet take 1 tablet by oral route every day active Prescrib ed Elsewher e: Yes Loca tion: Goran cintron [facility] odify By: freeman daly DateTime : 06/19/19 09:38:39 AM Not Available Not Available Not Available Protonix 40 mg granules delayed-r elease packet take 1 packet by oral route every day mixed in 1 teaspoon ful of applesau ce or apple juice active Prescrib ed Elsewher e: Yes Loca tion: Goran cintron [facility] odify By: freeman andrewsuntema DateTime : 06/19/19 09:38:39 AM Not Available Not Available Not Available loratadin e 10 mg capsule active Prescrib ed Elsewher e: Yes Loca tion: Lexie Lazo odify By: freeman andrewsunter DateTime : 06/19/19 09:38:39 AM Not Available Not Available Not Available Accu-Chek Shea Plus test strips 10/22 completed Prescrib ed Elsewher e: Yes Loca tion: Lexie Lazo odify By: freeman Cintron ncounter DateTime : 06/19/19 09:38:39 AM Not Available Not Available Not Available Lortab Elixir 10 mg-300 mg/15 mL oral solution take 11.25 millilit er by oral route every 4 - 6 hours as needed active Prescrib ed Elsewher e: Yes Loca tion: Lexie Lazo odify By: freeman andrewsunter DateTime : 06/19/19 09:38:39 AM Not Available Not Available Not Available ProAir RespiClic k 90 mcg/actua tion breath activated inhale 2 puff by inhalati on route every 4 - 6 hours as needed active Prescrib ed Elsewher e: Yes Loca tion: Lexie Lazo odify By: freeman Cintron ncounter DateTime : 06/19/19 09:38:39 AM Not Available Not Available Not Available FloLipid 20 mg/5 mL (4 mg/mL) oral suspensio n take 5 millilit er by oral route every day in the evening active Prescrib ed Elsewher e: Yes Loca tion: Lexie Lazo odify By: freeman andrewsuntema DateTime : 06/19/19 09:38:39 AM Not Available Not Available Not Available Xhance 93 mcg/actua tion breath activated aerosol spray 1 spray by intranas al route 2 times every day in each nostril active Prescrib ed Elsewher e: Yes Loca tion: Lexie Lazo odify By: freeman andrewsunter DateTime : 06/19/19 09:38:39 AM Not Available Not Available Not Available Arnuity Ellipta 50 mcg/actua tion powder for inhalatio n active Prescrib ed Elsewher e: Yes Loca tion: Lexie Lazo odify By: freeman andrewsunter DateTime : 06/19/19 09:38:39 AM Not Available Not Available Not Available Vitals Date Recorded Body height Body mass index (BMI) Body weight Systolic blood pressure Diastolic blood pressure Provider Name and Address Organization Details Last Updated DateTime 10/23/2023 167.64 cm 34.1 kg/m2 86025.99 g 144 mm[Hg] 83 mm[Hg] Valeria Deutsch [facility] 12:22:10 Social History Question Answer Notes LastModified by Organizat ion Details LastModified Time Tobacco Smoking Status Current Every Day Smoker Valeria Deutsch [facility], [facility] 10/23/2023 12:26:10 What Is Your Level Of Alcohol Consumption? Occasional Information not available 10/23/2023 Are You Blind Or Do You Have Difficulty Seeing? No Information not available 10/23/2023 What Is Your Level Of Caffeine Consumption? Moderate Information not available 10/23/2023 In The 14 Days Before Symptom Onset, Have You Had Close Contact With A Laboratory-confir med COVID-19 While That Case Was Ill? No Information not available 10/23/2023 In The 14 Days Before Symptom Onset, Have You Had Close Contact With A Person Who Is Under Investigation For COVID-19 While That Person Was Ill? No Information not available 10/23/2023 Have You Been To An Area Known To Be High Risk For COVID-19? No Information not available 10/23/2023 Are You Currently Employed? No Information not available 10/23/2023 Are You Deaf Or Do You Have Serious Difficulty Hearing? No Information not available 10/23/2023 Are There Any Guns Present In Your Home? No Information not available 10/23/2023 Do You Use Your Seat Belt Or Car Seat Routinely? Yes Information not available 10/23/2023 Are You Sexually Active? No Information not available 10/23/2023 Do You Have Smoke And Carbon Monoxide Detectors In Your Home? Yes Information not available 10/23/2023 Do You Feel Stressed (tense, Restless, Nervous, Or Anxious, Or Unable To Sleep At Night)? [id number] Information not available 10/23/2023 Do You Use Any Illicit Or Recreational Drugs? No Information not available 10/23/2023 Do You Use Sunscreen Routinely? Yes Information not available 10/23/2023 Sex: Unknown Functional Status Question Answer Note LastModified by Organizat ion Details LastModified Time Do you have difficulty walking or climbing stairs? No Information not available 10/23/2023 Are you able to walk? YESWOREST Information not available 10/23/2023 Are you able to care for yourself? Yes Information not available 10/23/2023 Do you have difficulty dressing or bathing? No Information not available 10/23/2023 Mental Status None recorded. Family History Nothing Reported Notes:Father: hyperlipidemia , Asthma, Congenital heart disease, Hypertension Maternal aunt: Diabetes mellitus Maternal grandmother: Asthma, Diabetes mellitus, hyperlipidmeia Mother: Congenital heart disease, hyperlipidemia, Hypertension, Cancer, breast Paternal grandfather: hyperlipdiemi a Paternal grandmother: Asthma, hyperlipdiemia, Diabetes mellitus Sister: Asthma Medical History Condition Response Allergies (Food, seasonal, environmental ) N Other N Breast Cancer N Drug/Latex Allergies/Reactions N Blood Transfusion N Dermatologic Disorders N Lung Disease N Defects or Inherited Disease N Breast Problem N Gestational Diabetes N Hematologic disorders N Anesthesia Complications N History of STI N Deep Vein Thrombosis N Polycystic ovary syndrome N Anxiety Disorder Y Autoimmune disease N Arthritis N Infertility N Polyps N Acid Reflux (GERD) Y History of abnormal pap Y Cancer N Stroke N Varicosities N Neurologic/Epilepsy N Endometriosis N High Cholesterol Y Headaches Y Fibromyalgia N Kidney Disease N Heart Problems N Kidney or Bladder Problems N Thyroid Problems N GI Problems Y Eating Disorder N Anemia N Art (IVF or FET) N Psychiatric Illness N Ovarian Cancer N Diabetes Y Pulmonary (TB, Asthma) N Hepatitis/Liver Disease N No Past Medical History N Eczema N Urinary Tract Infection N Abuse/Domestic Violence N Asthma Y Trauma/Violence N Depression/ depression N Heart Disease N Pre-Eclampsia N Hypertension Y Osteoporosis N Thrombophilias N Gynecological History Statement/Question Response Abnormal Pap Y Date of Last Mammogram 06/11/2022 On BCP's at Conception? N STIs/STDs N HPV Vaccine N Current Control Method Hysterectom y Age at First Child 23 Date of Last Colonoscopy 06/11/2020 Sexually Active? N Menses Monthly N Date of DEXA bone scan 10/23/2023 Date of Last Pap Smear Sexual Problems? N LMP Unknown Obstetrics History GPAL:G 2 P 0 0 0 2 Type Value Living 2 Total 2 Past Encounters Encounter ID Performer Location Encounter Start Date Encounter Closed Date Diagnosis/Indication Diagnosis SNOMED-CT Code Diagnosis ICD10 Code Diagnosis Note [id number] Coral Ayala , [facility] [address] [address] 10/23/2023 12:08:35 10/23/2023 13:52:38 Gynecologic examination 73456292 Z01.419 Take Calcium with Vitamin D 12-1500mg daily. Do monthly self breast exams. It is advised to get annual flu shot in the fall and she could obtain at [facility] or [facility] clinic. If you haven't received the Tdap vaccine in the last 10 years you should obtain one as well. Have mammogram yearly, bone density every 2-3 years and colonoscop y every 5-10 years depending on findings and history. Engage in daily exercise of low impact aerobic exercise 45-60 minutes 4-5 times weekly. Avoid tobacco and illicit drugs as well as using moderation with alcohol intake less than 1-2 8 oz beverages daily. This lifestyle behavior pattern will lead to less health conditions and longer life span. If BMI greater than 25 weight watchers or dietary consult advised. Questions have been answered. Patient appears to understand instructio ns, but if you have any further questions call or respond to this email Pap/hpv sentSTD Screen declinedGe netic Screen discussedC olon Screen PCP UTDDexa Screen PCP [facility]outine Labs PCP UTDMammo ordered Screening mammography 24 678191 Z12.31 Chronic constipation 236 558704 K59.09 Recommend updated visit GI/PCP moving forward.Karoline menjivar currently constipati on due to starting Mounjaro for DM2. Health Concerns Section Related Observation LastModified by Organization Detai ls LastModified Time None Recorded Concern Status LastModified by Organization Details LastModified Time None Recorded Advance Directives Directive None Recorded Payers Encounter Date Sequence Insurance Name Policy Number Policy Patel Covered Member ID Patel Member ID Guarantor Name 10/23/2023 1 [place] Mare Estevez [id number] Mare Kulkarnidham 10/23/2023 2 [facility] [id number] Mare Estevez [id number] Mare Estevez Notes Date Note Type Note Provider Name and Address Organization Details Recorded Time 10/23/2023 text/html 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 Post-MenopausalRe ported bypatient.Menopau edouard Symptoms:no menopausal symptoms; normal vaginal lubrication Vaginal Bleeding:history of menopause having occurred; no history of post menopausal bleeding Urinary Symptoms:no hematuria; no incontinence; no nocturia; no urinary frequency Vulva:no genital lesion; no vulvar atrophy Vagina:normal vaginal discharge; no vaginal atrophy Breast:no breast lump; no nipple discharge; no breast pain Sexual Complaints:no sexual complaints Psychological Symptoms:no depression; no anxiety COLEMAN George- [address], [place], [address], [facility] 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 Status 10/23/19 24 1 CLOSED Fetus Data First Name Last Name Admitted to NICU Weight (g) Sex Living Outcome Pediatric Complications Fetus ID Race Codes Race Delivery Type Full Term [id number] Vaginal Delivery Rusty Calculation Initial Rusty Date Initial Exam Date Initial Exam Provider Initial Ultrasound Date Last Menstrual Period Date Ultra Sound Weeks Gestation 0 Eighteen To Twenty Week Rusty Update Ultra Sound Date Fundal Height At Umbil Quickening Date Ultra Sound Latest Weeks Gestation Final Rusty Confirmed By Final Rusty Confirmed Date Final Rusty Date Ultra Sound Latest Days Gestation 0 0 Menstrual History Last Menstrual Date Menses Monthly On Bcp Conception Prior Menses Frequency Hcg Plus Date Menarche Onset Age Delivery Information Delivery Date Delivery Type Labor Anesthesia Weeks Gestation Incision Type Labor Labor Length Hrs Delivered By Post Complications Tubal Sterilization Discharge Date Comments 6 Discharge Information Feeding Method Contraceptive Method Maternal HG B and HCT Levels Ob Episode Information Episode Created Date Number of Fetuses Patient Bloodtype Patient rh Status Prepregnancy Weight lbs Domestic Partner Domestic Partner Phone Father Name General Farmworker Status 10/23/19 24 1 CLOSED Fetus Data First Name Last Name Admitted to NICU Weight (g) Sex Living Outcome Pediatric Complications Fetus ID Race Codes Race Delivery Type Full Term [id number] Vaginal Delivery Rusty Calculation Initial Rusty Date Initial Exam Date Initial Exam Provider Initial Ultrasound Date Last Menstrual Period Date Ultra Sound Weeks Gestation 0 Eighteen To Twenty Week Rusty Update Ultra Sound Date Fundal Height At Umbil Quickening Date Ultra Sound Latest Weeks Gestation Final Rusty Confirmed By Final Rusty Confirmed Date Final Rusty Date Ultra Sound Latest Days Gestation 0 0 Menstrual History Last Menstrual Date Menses Monthly On Bcp Conception Prior Menses Frequency Hcg Plus Date Menarche Onset Age Delivery Information Delivery Date Delivery Type Labor Anesthesia Weeks Gestation Incision Type Labor Labor Length Hrs Delivered By Post Complications Tubal Sterilization Discharge Date Comments 4 Discharge Information Feeding Method Contraceptive Method Maternal HG B and HCT Levels
--- OUTSIDE RECORDS SUMMARY | 2024-10-08 13:18 | XMS_ITS | Patient Health Record ---
Author Organization [facility] Address [address] [place] [address] Care Team Providers Care Medical Affairs Specialist Name Role Phone Armani Joshua Unavailable [phone] Reason For Referral No Information Medications Medication SIG (Take, Route, Frequency, Duration) Notes Start Date End Date Status Ibuprofen 800 MG take 1 tablet (800 m g) by oral route 3 times per day with food Oral 3 Active Varenicline Tartrate 0.5 MG take 1 tablet (0.5 mg) with a glass of water by oral route once daily after meals for 3 days Oral 1 for 3 Active HYDROcodone-Acetaminophen 10-325 MG take 1 tablet by oral route every 6 hours as needed for pain Oral 4 Active Xanax 0.5 MG take 1 tablet (0.5 m g) by oral route 3 times per day Oral 3 Active Ventolin HFA 108 (90 Base) MCG/ACT inhale 2 puffs by inhalation route at least 15 minutes before exertion Inhalation 0 Active Betamethasone Dipropionate 0.05 % apply a thin layer to the affected area(s) by topical route once daily External 1 Active Advair Diskus 250-50 MCG/ACT inhale 1 puff by inhalation route 2 times per day in the morning and evening approximately 12 hours apart Inhalation 2 Active Problems Problem Type SNOMED Code ICD Code Onset Dates Problem Status W/U Status Risk Notes Problem Systemic lupus erythematosus (76598729) Systemic lupus erythematosus, unspecified (M32.9) Active confirmed Plan Of Treatment No Information
--- OUTSIDE RECORDS SUMMARY | 2024-10-08 13:18 | XMS_ITS | Referral Summary ---
Author Organization [facility] [address] Address [address] [place] [address] Care Team Providers Care Pipe Or Steam Fitter Furnace Installer Name Role Phone Celio Del Valle MD Primary Care Provider [phone] Encounters Date Type Department Care Team Description 10/08/2024 7:00 AM CDT Ancillary Procedure [employer] Expert [address] [place] [phone] Syncope, unspecified syncope type; Implantable loop recorder present; Chest pain, unspecified type 09/03/2024 1:25 PM CDT [address] [phone] 09/03/2024 7:15 AM CDT Ancillary Procedure [employer]la [employer] Expert [address] [place] [phone] Syncope, unspecified syncope type; Implantable loop recorder present 09/02/2024 Orders Only [employer] Expert [address] [place] [phone] Malec, Nadeen Syncope, unspecified syncope type (Primary Dx); Implantable loop recorder present; Chest pain, unspecified type 08/18/2024 Telephone [employer] Expert [address] [place] [phone] Malec, Nadeen 08/01/2024 10:20 AM INSPECTOR ASSEMBLY Lab [address] [phone] 07/30/2024 3:00 PM INSPECTOR ASSEMBLY Ancillary Procedure Ola Motor Expert [id number] [address] Syncope, unspecified syncope type; Implantable loop recorder present from Last 3 Months Allergies Active Allergy Reactions Criticality Noted Date [...] (01/09/2022): Added automatically from request for surgery [id number] Encounter for loop recorder check 12/26/2021 Primary hypertension 05/09/2021 Mixed hyperlipidemia 05/09/2021 Syncope Overview (06/13/2021): Status post Biotronik Biomonitor 3 loop recorder insertion on 19 May 2021. Assessment & Plan (06/14/2021 11:14 AM INSPECTOR ASSEMBLY): Not seen for wound check since loop recorder insertion about a month ago. Apparently some stitches are coming out and these were removed. Dehydration Elevated lactic acid level Metabolic acidosis Volume depletion Social History Tobacco Use Types Packs/Day Years [...] on file Legal Sex Female 2:27 PM INSPECTOR ASSEMBLY Gender Identity Not on file Sexual Orientation Not on file Last Filed Vital Signs Vital Sign Reading Time Taken Comments Blood Pressure 110/81 06/09/2024 8:36 AM INSPECTOR ASSEMBLY Pulse 80 06/09/2024 8:36 AM INSPECTOR ASSEMBLY Temperature 36.9 C (98.5 F) 06/09/2024 8:36 AM INSPECTOR ASSEMBLY Respiratory Rate 16 06/09/2024 8:36 AM INSPECTOR ASSEMBLY Oxygen Saturation 98% 06/09/2024 8:36 AM INSPECTOR ASSEMBLY Inhaled Oxygen Concentration - - Weight 80.3 kg (177 lb) 06/09/2024 7:14 AM INSPECTOR ASSEMBLY Height 167.6 cm (5' 6 ) 06/09/2024 7:14 AM INSPECTOR ASSEMBLY Body Mass Index 28.57 06/09/2024 7:14 AM INSPECTOR ASSEMBLY Plan of Treatment Not on file Medical Devices Implanted Type Area Field Tax Auditor Device Identifier Shelf Expiration Date Model / Serial / Lot [employer] Miu [id number] Biomonitor Iii Monitor Cardiac Sterile Disposable Latex Free - [id number] - [id number] Implanted:Qty: 1 on 05/18/2021 by Andrea Booth MD at [facility] Implantable Loop Recorder [employer]u 08/08/2022 [id number] / [id number] / Procedures Procedure Name Priority Date/Time Associated [...] URINALYSIS, MICROSCOPIC ONLY Routine 08/01/2024 11:48 AM INSPECTOR ASSEMBLY URINALYSIS AND REFLEX TO MICROSCOPIC Routine 08/01/2024 11:48 AM INSPECTOR ASSEMBLY ALBUMIN CREATININE RATIO, URINE Routine 08/01/2024 11:48 AM INSPECTOR ASSEMBLY DRUGS OF ABUSE SCREEN, URINE WITH REFLEX CONFIRMATION Routine 08/01/2024 11:48 AM INSPECTOR ASSEMBLY URINE CULTURE Routine 08/01/2024 11:48 AM INSPECTOR ASSEMBLY DEVICE CHECK - REMOTE Routine 07/30/2024 11:28 AM INSPECTOR ASSEMBLY Syncope, unspecified syncope type Implantable loop recorder present COLONOSCOPY 06/09/2024 7:[address] LUNG CANCER SCREENING Schedule Routine, Read Routine (OP Routine) 05/19/2024 11:22 AM INSPECTOR ASSEMBLY Nicotine dependence, cigarettes, uncomplicated SCREENING MAMMOGRAM BILATERAL W WILLIE Schedule Routine, Read Routine (OP Routine) 12/07/2022 12:54 PM CDT Screening mammogram, encounter for DEXA AXIAL SKELETON BONE DENSITY 1 OR MORE SITES Schedule Routine, Read Routine (OP Routine) 08/16/2020 10:17 AM INSPECTOR ASSEMBLY Asymptomatic menopausal state from Last 3 Months [...] 2023. Methadone, ur Not Detected CutOff 300ng/mL [facility] ([place]) Comment: Interpretive Data - Methadone: [...] 2023. Oxycodone, ur Not Detected CutOff 100ng/mL [facility] ([place]) Comment: Interpretive Data - Oxycodone: Samples containing greater than 100 ng/mL oxycodone or other cross-reacting compounds are reported as positive. False positive and false negative results are possible. Confirmatory testing required for definitive results. Current Interpretive Data was last reviewed 2023. Phencyclidine, ur Not Detected CutOff 25 ng/mL [facility] ([place]) Comment: Interpretive Data - Phencyclidine: [...] 09/03/2024 1:59 PM CDT Narrative EMILY P[facility] ([place]) - 09/03/2024 2:32 PM CDT Drug of Abuse screening is performed by immunoassay for medical purposes only. This is not to be used for Pain Management purposes. If Detected, confirmation testing will be performed for Amphetamines, Cocaine, Fentanyl, Methadone, Opiates, Oxycodone or Phencyclidine. us Celio Del Valle MD LAB URINE ORDERABLES Ambreen l Result Performing Organization Address City/[facility]/ZIP Co de Phone Number EMILY PEREZ ([place]) 1 [facility] [place] [address] * (ABNORMAL) eGFR (09/03/2024 1:46 PM CDT) [...] MD LAB BLOOD ORDERABLES Ambreen l Result Performing Organization Address City/[facility]/ZIP Co de Phone Number EMILY PERE[facility] ([place]) 1 [facility] [place] [address] * (ABNORMAL) Urinalysis reflex to microscopic (09/03/2024 [...] tendency for uric acid stone formation. Source: [facility] Current Interpretive Data was last revised on [...] MD LAB URINE ORDERABLES Ambreen go Result [facility] ([place]) 1 [facility] [place] [address] * (ABNORMAL) Urinalysis, microscopic only (09/03/2024 1:46 PM CDT) WBC, ur 0-5 0 - 5 /HPF RBC, ur 0-2 0 - 2 /HPF [facility] ([place]) Epithelial cells, squamous, ur 1-5 0 - 5 /HPF [facility] ([place]) Bacteria, ur Trace(A) [facility] ([place]) Hyaline casts, ur 1-5 0 - 10 /LPF [facility] ([place]) Urine 09/03/2024 1:46 PM CDT 09/03/2024 1:59 PM CDT us Celio Del Valle MD LAB URINE ORDERABLES Ambreen l Result Performing Organization Address [facility]/ZIP Co de Phone Number EMILY PEREZ ([place]) 1 [facility] [place] [address] * Urine culture Urine (09/03/2024 1:46 PM CDT) Report Final Report: Less than 100,000 colonies/mL (clinically insignificant growth based on current clinical standards) Comment:Testing performed by : [facility], [address] [place]., [address] Organism (CLINICALLY INSIGNIFICANT GROWTH EMILY PEREZ ([place]) Urine 09/03/2024 1:46 PM CDT 09/03/2024 4:24 PM CDT Narrative EMILY PERE[facility] ([place]) - 09/04/2024 5:42 PM CDT Testing performed by [facility] Microbiology Laboratory ([phone]) us Celio Del Valle MD LAB MICROBIOLOGY - GENERA L ORDERABLES Final Result Performing Organization Address [facility] Co de Phone Number EMILY PEREZ ([place]) 1 [facility] [place] [address] * (ABNORMAL) Vitamin B12 (09/03/2024 1:46 PM CDT) Vitamin B12 1,901(H) 230 - 1,250 pg/mL Blood 09/03/2024 1:46 PM CDT 09/03/2024 1:58 PM CDT us Celio Del Valle MD LAB BLOOD ORDERABLES Amberen l Result Performing Organization Address City/[facility]/ZIP Co de Phone Number [facility] ([place]) 1 [facility] [place] [address] * (ABNORMAL) Comprehensive metabolic panel (09/03/2024 1:46 [...] LAB BLOOD ORDERABLES Ambreen go Result EMILY CHRIS ([place]) 1 [facility] [place] [address] * DEVICE CHECK - REMOTE (09/02/2024 9:43 AM CDT) Anatomical Region Laterality Modality Other Narrative 09/04/2024 6:32 AM CDT Images from the original result were not included. 09/03/2024 [employer] monthly remote check The complete report is attached and is also available in Visit Navigator under Continuity Manager Last periodic SECG (Sep 03, 2024, 1:20:00 [...] Urine with Reflex Confirmation (08/01/2024 11:48 AM INSPECTOR ASSEMBLY) Amphetamine, ur Not Detected CutOff 500ng/mL Comment: Interpretive Data - Amphetamines: Samples containing greater than 500 ng/mL d-methamphetamine or other cross-reacting amphetamine compounds are reported as positive. Amphetamine immunoassays are subject to significant false positive rates due to cross-reactivity of non-amphetamine drugs. Confirmatory testing required for definitive results. Current Interpretive Data was last reviewed 2023. Barbiturates, ur Not Detected CutOff 200ng/mL [facility] ([place]) Comment: Interpretive Data - Barbiturates: [...] ur Not Detected CutOff 25 ng/mL EMILY [facility] ([place]) Comment: Interpretive Data - Phencyclidine: Samples containing greater than 25 ng/mL phencyclidine or other cross-reacting compounds are reported as positive. False positive and false negative results are possible. Confirmatory testing required for definitive results. Current Interpretive Data was last reviewed 2023. Urine Creatinine 58 mg/dL SUNIL PERE[facility] ([place]) Comment: Interpretive Data Urine Creatinine: < 10 mg/dL is extremely dilute = or > 10 but < 20 mg/dL is dilute = or > 20 mg/dL is normal Current Interpretive Data was last revised on 2017. Urine 08/01/2024 11:4 8 AM INSPECTOR ASSEMBLY 08/01/2024 3:28 PM INSPECTOR ASSEMBLY Narrative [facility] ([place]) - 08/01/2024 4:11 PM INSPECTOR ASSEMBLY Drug of Abuse screening is performed by immunoassay for medical purposes only. This is not to be used for Pain Management purposes. If Detected, confirmation testing will be performed for Amphetamines, Cocaine, Fentanyl, Methadone, Opiates, Oxycodone or Phencyclidine. us Celio Del Valle MD LAB URINE ORDERABLES Ambreen go Result EMILY [facility] ([place]) 1 [facility] [place] [address] * (ABNORMAL) Urinalysis reflex to microscopic (08/01/2024 11:48 AM INSPECTOR ASSEMBLY) Color, ur Yellow Yellow Clarity, ur Clear Clear EMILY Borrero ([place]) Specific gravity, ur 1.011 1.003 - 1.030 EMILY [facility] ([place]) pH, urine 6.5 [facility] ([place]) Comment: Interpretive Data U rine pH is affected by diet, medications, systemic acid-base disturbances, and renal tubular function. pH may affect urinary stone formation. For example, urine pH below 6.0 may help reduce the tendency for calcium phosphate stones and pH greater than 6.0 may reduce the tendency for uric acid stone formation. Source: [facility] Current Interpretive Data was last revised on [...] will be performed. [facility] ([place]) Urine 08/01/2024 11:4 8 AM INSPECTOR ASSEMBLY 08/01/2024 11:54 AM INSPECTOR ASSEMBLY us Celio Del Valle MD LAB URINE ORDERABLES Ambreen l Result [facility] ([place]) 1 [facility] [place] [address] * (ABNORMAL) Albumin Creatinine Ratio, Urine (08/01/2024 11:48 AM INSPECTOR ASSEMBLY) Albumin Ur 29.0 mg/L Comment: Interpretive Data No reference range established. Current interpretive data was last revised 2018. Testing performed by: [address] [address] Creatinine Ur 55.5 mg/dL [facility] ([place]) Comment: Interpretive Data No reference range established. Current interpretive data was last revised 2018. Testing performed by: [facility], [address] [place] [address]., [address] Albumin Creatinine Ratio, Ur 52(H) 1 - 29 mg/g [facility] ([place]) Comment:Testing performed by : [facility], [address] [place] [address]., [address] Urine 08/01/2024 11:4 8 AM INSPECTOR ASSEMBLY 08/01/2024 2:35 PM INSPECTOR ASSEMBLY Celio Del Valle MD LAB URINE ORDERABLES Ambreen l Result [facility]ILY PERE[facility] ([place]) 1 [facility] [place] [address] * (ABNORMAL) Urinalysis, microscopic only (08/01/2024 11:48 AM INSPECTOR ASSEMBLY) WBC, ur 0-5 0 - 5 /HPF RBC, ur 0-2 0 - 2 /HPF [facility] ([place]) Epithelial cells, squamous, ur 1-5 0 - 5 /HPF [facility] ([place]) Mucous, ur Present(A) [facility] ([place]) Urine 08/01/2024 11:4 8 AM INSPECTOR ASSEMBLY 08/01/2024 11:54 AM INSPECTOR ASSEMBLY us Celio Del Valle MD LAB URINE ORDERABLES Ambreen l Result Performing Organization Address [facility] Co de Phone Number EMILY PERE[facility] ([place]) 1 [facility] [place] [address] * Urine culture Urine (08/01/2024 11:48 AM INSPECTOR ASSEMBLY) Report Final Report: Less than 100,000 colonies/mL (clinically insignificant growth based on current clinical standards) Comment:Testing performed by : [facility], [address] [place]., [address] Organism (CLINICALLY INSIGNIFICANT GROWTH EMILY [facility] ([place]) Urine 08/01/2024 11:4 8 AM INSPECTOR ASSEMBLY 08/01/2024 6:07 PM INSPECTOR ASSEMBLY Narrative EMILY [facility] ([place]) - 08/02/2024 8:19 PM INSPECTOR ASSEMBLY Testing performed by [facility] Microbiology Laboratory ([phone]) us Celio Del Valle MD LAB MICROBIOLOGY - GENERA L ORDERABLES Final Result [facility] P[facility] ([place]) [address] [place] [address] Department [place] [address] * DEVICE CHECK - REMOTE (07/30/2024 11:28 AM INSPECTOR ASSEMBLY) Anatomical Region Laterality Modality Other Narrative 08/01/2024 5:04 PM INSPECTOR ASSEMBLY Images from the original result were not included. 07/30/2024 [employer] monthly remote check The complete report is attached and is also available in Visit Navigator under Continuity Manager Next Appointment: 11/24/2024 No episodes this monitoring period Reviewed By Chayito Glasgow SEWING MACHINE TESTER ATTESTATION I have reviewed the device interrogation report associated with this encounter in detail. I agree with the documentation recorded/scanned into the electronic medical record. Recommendations: Continue current device follow-up. Elieser Christensen MD Elieser Christensen MD CARDIAC SERVICES PROCEDURES Final Result * Colonoscopy (06/09/2024 7:05 AM INSPECTOR ASSEMBLY) Anatomical Region Laterality Modality Other Narrative Procedure Note Richard Guadarrama, DO - 06/09/2024 7:05 AM CST [facility] Patient Name: Mare Estevez Procedure Date: 06/09/2024 7:05 AM Date of : 1950 Admit Type: Outpatient Age: 73 Gender: Female Attending MD: Richard Guadarrama , D.O. Room: [facility] ENDOSCOPY ROOM 2 Note Status: Finalized Patient [...] scope was passed under direct vision. TheColonoscope [id number] was introduced through the anus and advanced [...] 7:05 AM Procedure Code(s): --- Professional --- 30453, Colonoscopy, flexible; with biopsy, single or multiple --- Technical --- 71895, Colonoscopy, flexible; with biopsy, single or multiple [...] perforation orabscess without bleeding CPT copyright 2020 [employer]. All rights reserved. The codes documented in this report are preliminary and upon anodic operator reviewmay be revised to meet current compliance requirements. Recognized by the [employer] for promoting quality in endoscopy us Richard Guadarrama DO ENDOSCOPY PROCEDURES Final Res ult * CT Lung Cancer Screening (05/19/2024 11:22 AM INSPECTOR ASSEMBLY) Anatomical Region Laterality Modality Chest N/A Computed Tomogra phy 05/24/2024 4:45 PM INSPECTOR ASSEMBLY Narrative 05/24/2024 4:49 PM INSPECTOR ASSEMBLY EXAM DESCRIPTION: CT LUNG CANCER SCREENING REASON [...] Philippe Smith M.D. BS: BS Report ID: [id number] Reading Location: [place] [address] Procedure Note Philippe Smith MD - 05/24/2024 [...] Philippe Smith M.D. BS: BS Report ID: [id number] Reading Location: [place] [address] Lizett Ricardo MD IMG CT PROCEDURES Final [...] 1 or 2 Site (08/16/2020 10:17 AM INSPECTOR ASSEMBLY) Anatomical Region Laterality Modality Body N/A Other 08/16/2020 11:2 5 AM INSPECTOR ASSEMBLY Impressions 08/16/2020 11:26 AM INSPECTOR ASSEMBLY According to the World Health Organization criteria, [...] receiving long-term steroid therapy. Electronically signed by: Carlos Lazcano 08/16/2020 11:26 AM INSPECTOR ASSEMBLY STUDY DESCRIPTION: DEXA AXIAL SKELETON BONE DENSITY 1 OR MORE SITES CLINICAL INDICATIONS: Postmenopausal. Parental hip fracture COMPARISON: None TECHNIQUE: Dual x-ray absorptiometry (DEXA) was performed using Hologic system. GENERAL GUIDELINES: According to WHO guidelines, [...] Dual x-ray absorptiometry (DEXA) was performed using Hologic system. GENERAL GUIDELINES: According to WHO guidelines, [...] Recently Relevant to Health Maintenance Insurance MEDICARE [facility] MEDICARE MEDICARE [facility] [employer] MEDICARE Advance Directives For more information, please contact: [phone] * Full Code (Latest Code Status on [...] 10:24 AM 05/18/2021 3:52 PM Care Teams Pipe Or Steam Fitter Furnace Installer Relationship Specialty Start Date End Date Celio Del Valle MD PCP - General Family Practice 09/26/23
--- OUTSIDE RECORDS SUMMARY | 2024-10-08 13:18 | XMS_ITS | Clinical Summary ---
Author Organization [facility] [employer] Address [address] [place] [address] Care Team Providers Care Oil Heaterman Name Role Phone Deandre Ellis MD Primary Care Provider [phone] Source Comments [facility] [employer],non-owned Affiliates and Associated Physician Practices is amultiple site organization consisting of ambulatory clinics and hospital sitesin [place], [place], [place] and [place]. This disclosure is being madepursuant to the Care Everywhere program and may not contain all information available regarding this patient. Last updated 18.[employer] Allergies No known active allergies Medications * Be aware that medications may not be up to date on this document. Alwaysverify current medications with the patient. piroxicam (FELDENE) 20 MG capsule Take 1 Cap by mouth daily with food 30 Cap 11 02/22/2015 Active Social History Tobacco Use Types Packs/Day Years Used Date Smoking Tobacco: Every Day Cigarettes 0.5 20 Smokeless Tobacco: Never Alcohol Use Standard Drinks/Week Comments Yes 0 (1 standard drink = 0.6 oz pur e alcohol) Comments Unknown Sex and Gender Information Value Date Recorded Sex Assigned at Not on file Legal Sex Female 4:26 PM CDT Gender Identity Not on file Sexual Orientation Not on file Occupation Industry Job Start Date Job End Date RETIRED Not on file Not on file Not on file Last Filed Vital Signs Vital Sign Reading Time Taken Comments Blood Pressure - - Pulse - - Temperature - - Respiratory Rate - - Oxygen Saturation - - Inhaled Oxygen Concentration - - Weight 95.3 kg (210 lb) 02/22/2015 11:22 AM CDT Height 170.2 cm (5' 7 ) 02/22/2015 11:22 AM CDT Body Mass Index 32.89 02/22/2015 11:22 AM CDT Plan of Treatment Health Maintenance Due Date Last Done Comments BONE DENSITY TESTING 1950 COLOGUARD (AGES 45-75) - COL ON CA SCREENING 1950 COLON MONITORING 1950 COLONOSCOPY - COLON CA SCREENING 1950 CT COLONOGRAPHY - COLON CA SCREENING 1950 Colorectal Cancer Screening 1950 FIT - COLON CA SCREENING 1950 FLEX SIG - COLON CA SCREENING 1950 LIPID TESTING 1950 MAMMOGRAM 1950 MEDICARE AWV 12 MONTHS 1950 HEPATITIS C SCREENING 08/09/1970 DTAP/TDAP/TD VACCINES (1 - Tdap) 08/14/1971 PNEUMOCOCCAL VACCINE 50+ (1 of 2 - PCV) 08/14/1971 ZOSTER VACCINE (1 of 2) 2002 COVID-19 VACCINE ( - 2023-2 5 season) 2024 DEPRESSION SCREENING 06/11/2024 INFLUENZA VACCINE (Season Ended) 2025 Respiratory Syncytial Virus (RSV) Vaccine Pt: or over 60 yrs (1 - 1-dose 75+ series) 08/14/2027 HEPATITIS B VACCINE Aged Out No longe r eligible based on patient's age to complete this topic HIB VACCINE Aged Out No longer eligi ble based on patient's age to complete this topic HPV VACCINE Aged Out No longer eligi ble based on patient's age to complete this topic MENINGOCOCCAL (Group B) VACC INE SHARED DECISION-MAKING Aged Out No longer eligibl e based on patient's age to complete this topic MENINGOCOCCAL GROUPS A/C/Y/W VACCINE Aged Out No longer eligible b ased on patient's age to complete this topic Insurance [facility] MEDICARE MEDICAID - OUT OF [facility] Care Teams Oil Heaterman Relationship Specialty Start Date End Date Deandre Ellis MD [address] [place] [id number] PCP - General Internal Medicine 02/03/15
--- OUTSIDE RECORDS SUMMARY | 2024-10-08 13:18 | XMS_ITS | Clinical Summary ---
Author Organization [facility] Address [address] [place] [address] Phone Care Team Providers Care Charge Account Identification Clerk Name Role Phone Celio Del Valle MD Primary Care Provider Shabbir Carlos MD Unavailable [phone] Allergies Active Allergy Reactions Criticality Noted Date Comments Aripiprazole Other (see Comments) 12/07/2021 Tardive dyskinesia Ceftriaxone Rash 12/07/2021 Latex Rash 12/07/2021 Levofloxacin Rash 12/07/2021 Morphine Rash 12/07/2021 Medications HYDROcodone-asad taminophen (NORCO) 10-325 MG Tablet Take 1 Tablet by mouth every 6 hours as needed. Active loratadine (CLARITIN) 10 MG Tablet Take 10 mg by mouth daily. Active senna (Senokot) 8.6 MG Tablet Take 1 Tablet by mouth 2 times daily. Active Coenzyme Q10 (CO Q 10 PO) Take by mouth. Ac tive Calcium Carbonate Antacid (CALCIUM CARBONATE PO) Take by mouth. A ctive Fluticasone Furoate 27.5 MCG/SPRAY Suspension 2 Puffs by Nasal route daily. Active mupirocin (BACTROBAN) 2 % Ointment Apply 3 times daily. Active montelukast (SINGULAIR) 10 MG Tablet Take 10 mg by mouth every evening. Active zaleplon (SONATA) 10 MG Capsule Take 10 mg by mouth nightly. Active DULoxetine (CYMBALTA) [address] Particles Take 60 mg by mouth daily. Active albuterol (ACCUNEB) 0.63 MG/3ML Nebulizer Soln 0.63 mg by Nebulization route every 4 hours as needed. Active ALBUTEROL SULFATE HFA IN take by inhalation. Active FAMOTIDINE PO Take 40 mg by mouth. Active SITagliptin (JANUVIA) 50 MG Tablet Take 50 mg by mouth daily. Active amLODIPine (NORVASC) 2.5 MG Tablet Take 2.5 mg by mouth daily. Active FLUoxetine (PROZAC) 40 MG Capsule Take 40 mg by mouth daily. Active methylphenidate (RITALIN) 20 MG Tablet Take 20 mg by mouth 2 times daily. Active valsartan (DIOVAN) 160 MG Tablet Take 160 mg by mouth daily. Active ibuprofen (MOTRIN) 800 MG Tablet Take 800 mg by mouth every 8 hours. Active simvastatin (ZOCOR) 20 MG Tablet Take 20 mg by mouth every evening. Active Fluticasone-Ume clidin-Vilant (Trelegy Ellipta) 100-62.5-25 MCG/INH AEROSOL POWDER, BREATH ACTIVATED take 1 Puff by inhalation daily. Active topiramate (TOPAMAX) 25 MG Tablet Take 1 Tablet by mouth 2 times daily. 180 Tablet 3 4 Active LACTULOSE PO Take by mouth. Ac tive gabapentin (NEURONTIN) 100 MG Capsule Take 100 mg by mouth nightly. Active Mounjaro 2.5 MG/0.5ML Solution Pen-injector 4 Active Immunizations Immunization Administration Dates Next Due Pneumococcal Vaccine Adult - 23 Valent 1 Family History Medical History Relation Name Comments Chronic Obstructive Pulmonary Disease Father Hypertension Father Prostate Cancer Father Breast Cancer Mother Diabetes Mother Hypertension Mother Kidney Disease Mother Relation Name Status Comments Father Mother Social History Tobacco Use Types Packs/Day Years Used Date Smoking Tobacco: Every Day Cigarettes 1 40 Smokeless Tobacco: Never Tobacco Cessation:Ready to Q uit: Yes; Counseling Given: Not Answered Alcohol Use Standard Drinks/Week Comments Yes 0 (1 standard drink = 0.6 oz pur e alcohol) twice a month Comments No Sex and Gender Information Value Date Recorded Sex Assigned at Not on file Legal Sex Female 11:58 PM CDT Gender Identity Not on file Sexual Orientation Not on file Last Filed Vital Signs Vital Sign Reading Time Taken Comments Blood Pressure 120/66 06/19/2024 11:35 AM [facility] Pulse 88 06/19/2024 11:35 AM [facility] Temperature 36.6 C (97.8 F) 06/19/2024 11:35 AM [facility] Respiratory Rate 16 06/19/2024 11:35 AM [facility] Oxygen Saturation 97% 06/19/2024 11:35 AM [facility] Inhaled Oxygen Concentration - - Weight 79.9 kg (176 lb 3.2 oz) 06/19/2024 11:35 AM [facility] Height 167.6 cm (5' 6 ) 06/19/2024 11:35 AM [facility] Body Mass Index 28.44 06/19/2024 11:35 AM [facility] Plan of Treatment Upcoming Encounters Date Type Department Care Team (Late st Contact Info) Description 06/18/2025 11:00 AM [facility] Office Visit [facility] [address] [place] [address] Shabbir Carlos MD [address] [place] [address] Health Maintenance Due Date Last Done Comments Hepatitis C Virus (HCV) Screening 1950 TdaP Immunization 1950 Cologuard 2002 Immunochemical Fecal Occult Blood 2002 Respiratory Syncytial Virus (RSV) Immunization (Adult) (1 - Risk 60-74 years 1-dose series) 2012 Lung Cancer Screening 06/09/2023 06/09/2022 Mammogram 12/08/2023 12/07/2022, 10/09, 08/16/2020, Additional history exists Influenza Immunization (#1) 02/10/202403/11, 03/22/2018, 03/14/2018 SARS-COV-2 Immunization ( season) 2024 01/09/2022, 09/10/2020, 08/20/2020 DEXA Bone Density 10/22/2025 10/23/2023, 08/16/2020 Colonoscopy 06/09/2034 06/09/2024, 06/10/2020 Colorectal Cancer Screening 06/09/2034 06/09/2024, 06/10/2020 Pneumococcal Immunization (50+ years) Completed 05/12/2021, 04/15/2020 Zoster Immunization Completed 05/12/2021, 04/02/2020, 07/02/2013 Hepatitis B Immunization Aged Out No longer eligible based on patient's age to complete this topic Meningococcal Immunization (ACWY) Aged Out No longer eligible based on patient's age to complete this topic Rotavirus Immunization Aged Out No lo nger eligible based on patient's age to complete this topic Procedures Procedure Name Priority Date/Time Associated Diagnosis Comments [facility] BONE DENSITOMETRY AXIAL SKELETON Routine 10/23/2023 2:03 PM CDT Asymptomatic postmenopausal status from Last 3 Months or Most Recently Relevant to Health Maintenance Results * [facility] BONE DENSITOMETRY AXIAL SKELETON (10/23/2023 2:03 PM CDT) Anatomical Region Laterality Modality BODY N/A Computed Radiogr aphy 10/23/2023 2:45 PM CDT Impressions 10/23/2023 2:47 PM CDT IMPRESSION: Low bone mass REFERENCE: Bone mineral density: T-Score: Normal (T-score above or = -1.0) Low bone mass (T-score between -1.0 and -2.5) replaces the previously used term osteopenia Osteoporosis (T-score = or below -2.5) Z-Score: Within the expected range for age (Z-score above -2.0) Below the expected range for age (Z-score is -2.0 or below) Please see below follow up recommendations. Medical evaluation for secondary causes of low bone mineral density may be appropriate. FRAX is a World Health Organization validated fracture risk assessment tool that calculates a person's 10 year probability of a major osteoporosis related fracture and hip fracture. According to the National Osteoporosis Foundation guidelines, postmenopausal women and men age 50 or older with low bone mass and a 10 year probability of a major osteoporosis related fracture = or greater than 20% or a 10 year probability of a hip fracture = or greater than 3% should be considered for pharmacological treatment for the prevention of osteoporosis. For further information, including treatment recommendations, please refer to the 2019 ISCD Official Positions (http://www.iscd.org) and the NOF's Clinician's Guide to Prevention and Treatment of Osteoporosis (http://www.nof.org/professionals/clinical-guidelines) Narrative 10/23/2023 2:47 PM CDT EXAM DESCRIPTION: [facility] BONE DENSITOMETRY AXIAL SKELETON REASON FOR STUDY: 73 y/o year old F with given history of: Post menopausal status. History of prior fracture, parent with hip fracture and smoking. Patient takes vitamin-D and calcium. 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 COMPARISON: None available FINDINGS: AP LUMBAR SPINE L1-L4: Total BMD is 1.251 g/cm2 T-score is 0.5 LEFT HIP: Total BMD is 0.897 g/cm2 T-score is -0.9 Femoral neck BMD is 0.870 g/cm2 T-score is -1.2 FRAX: 10 year risk for a major osteoporotic fracture is 22.2 %, 10 year risk for a hip fracture is 6.8 % THIS IS AN ELECTRONICALLY VERIFIED FINAL REPORT 10/23/2023 2:45 PM - Electronically signed by Kellie Birmingham M.D. TW: TW Report ID: [id number] Reading Location: [id number] Procedure Note Kellie Birmingham MD - 10/23/2023 EXAM DESCRIPTION: [facility] BONE DENSITOMETRY AXIAL SKELETON REASON FOR STUDY: 73 y/o year old F with given history of: Post menopausal status. History of prior fracture, parent with hip fracture and smoking. Patient takes vitamin-D and calcium. 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 COMPARISON: None available FINDINGS: AP LUMBAR SPINE L1-L4: Total BMD is 1.251 g/cm2 T-score is 0.5 LEFT HIP: Total BMD is 0.897 g/cm2 T-score is -0.9 Femoral neck BMD is 0.870 g/cm2 T-score is -1.2 FRAX: 10 year risk for a major osteoporotic fracture is 22.2 %, 10 year risk for a hip fracture is 6.8 % THIS IS AN ELECTRONICALLY VERIFIED FINAL REPORT 10/23/2023 2:45 PM - Electronically signed by Kellie Birmingham M.D. TW: TW Report ID: [id number] Reading Location: [place] [address] IMPRESSION: Low bone mass REFERENCE: Bone mineral density: T-Score: Normal (T-score above or = -1.0) Low bone mass (T-score between -1.0 and -2.5) replaces the previously used term osteopenia Osteoporosis (T-score = or below -2.5) Z-Score: Within the expected range for age (Z-score above -2.0) Below the expected range for age (Z-score is -2.0 or below) Please see below follow up recommendations. Medical evaluation for secondary causes of low bone mineral density may be appropriate. FRAX is a World Health Organization validated fracture risk assessment tool that calculates a person's 10 year probability of a major osteoporosis related fracture and hip fracture. According to the National Osteoporosis Foundation guidelines, postmenopausal women and men age 50 or older with low bone mass and a 10 year probability of a major osteoporosis related fracture = or greater than 20% or a 10 year probability of a hip fracture = or greater than 3% should be considered for pharmacological treatment for the prevention of osteoporosis. For further information, including treatment recommendations, please refer to the 2019 ISCD Official Positions (http://www.iscd.org) and the NOF's Clinician's Guide to Prevention and Treatment of Osteoporosis (http://www.nof.org/professionals/clinical-guidelines) us Celio Del Valle MD IMG DEXA ORDERABLES Final Resul t from Last 3 Months or Most Recently Relevant to Health Maintenance Insurance [facility] MEDICARE C [employer] Care Teams Charge Account Identification Clerk Relationship Specialty Start Date End Date Celio Del Valle MD [address] [place] [id number] PCP - General Family Medicine 09/07/23 Shabbir Carlos MD [address] [place] [address] Consulting Physician Neurology 09/07/23
== END 2024-10-08 12:05 | disposition home or self-care (01) ==
LOC: ANHBWCAUD 12:05
PROVIDERS: PCP Family Medicine; Visit Provider Family Medicine
DX: H90.3 Sensorineural hearing loss, bilateral (principal)
CPT/HCPCS: 92557; 92567

== ENCOUNTER 2025-04-13 13:42 | Outpatient (CLI) | payer MEDICARE, SELFPAY ==
--- NOTE | ~2025-04-13 | US_ITS ---
US renal BI 04/13/2025 14:48 Procedure: Realtime transabdominal ultrasound of the kidneys and bladder. Indication: Renal cysts Comparison: KUB Findings: Renal echotexture is normal bilaterally without hydronephrosis, solid contour deforming mass or renal calculus. There are bilateral renal cysts measuring 1.9 cm on the right and 4 cm on the left. The right kidney measures 9.8 cm and left kidney measures 10.7 cm. Post void residual is 251 cc. Bladder within normal limits. Impression: 1: Large post void residual measures 2 51 cc. 2: Bilateral renal cysts. Reviewed, dictated and finalized at location [facility] [employer] Impression: 1: Large post void residual measures 2 51 cc. 2: Bilateral renal cysts.
== END 2025-04-13 13:43 | disposition home or self-care (01) ==
PROVIDERS: PCP Family Medicine; Visit Provider Family Medicine
DX: N28.1 Cyst of kidney, acquired (principal)
CPT/HCPCS: 76770